=== PATIENT | female | born 1950 | race Caucasian/White ===

== ENCOUNTER → 2018-05-13 | Outpatient (CLI) | payer MEDICARE, OTHER | END | disposition home or self-care (01) | LOC: SPEC 12:56 | DX: L02.419 Cutaneous abscess of limb, unspecified (principal); I11.0 Hypertensive heart disease with heart failure; I50.9 Heart failure, unspecified; E78.5 Hyperlipidemia, unspecified; E03.9 Hypothyroidism, unspecified; Z87.891 Personal history of nicotine dependence; Z82.49 Family history of ischemic heart disease and other diseases of the circulatory system | CPT/HCPCS: 87071; 87075; 87186 ==

== ENCOUNTER 2019-04-22 01:39 | Inpatient (IN) | payer MEDICAID, MEDICARE ==
[2019-04-22] VITALS (13 sets, daily range): BP systolic 87–144; BP diastolic 42–66
[~2019-04-22] VITALS: Ht 185.4 cm; Wt 107.6 kg
[~2019-04-22 01:39] MED LIST: ALBU2.5V8 IH; AMLO10TA8 PO; AMLO5TAB10 PO; AMOX1TAB61 PO; BUDE10.2 IH; CITA40TA5 PO; DULO60CA6 PO; ERGO500027 PO; GABA300C18 PO; LEVO25TA4 PO; LEVO50TA5 PO; LISI-334 PO; PRAV40TA2 PO; VENTOLIN HFA18 GM INH
--- NOTE | 2019-04-22 05:31 | NUR ---
Patient transferred to unit via ambulance from [facility]. Report received from Deysi DIAMOND in the ED. Patient arrived to unit at 0330 and had a pain complaint of 8 out of 10. Patient belongings are left with patient. Did call security at patients request to help secure money and other valuables. Patient was admission was completed as well as assessment. Patient bed was placed in the lowest position, call light within reach and locked. Will continue to monitor the patient at this time.
[2019-04-22] MEDS ORDERED: HYDROcodone/APAP 5/325MG 1 TAB TABLET PO PRN (06:00)
[2019-04-22] MEDS ORDERED: ONDANSETRON PF 4 MG/2 ML VIAL. IV PRN ×2 (06:00→09:00)
[2019-04-22] MEDS ORDERED: AMLO10TA8 PO (06:20)
[2019-04-22] MEDS ORDERED: BREO ELLIPTA 11 EACH IH (06:20)
[2019-04-22] MEDS ORDERED: [UNRECOGNIZED DRUG - OTHER] IH (06:20)
[2019-04-22] MEDS ORDERED: ATOR40TA59 PO (06:20)
[2019-04-22] MEDS ORDERED: ACET325T9 PO (06:20)
[2019-04-22] MEDS ORDERED: ASPI-630 PO (06:20)
[2019-04-22] MEDS: IV NORMAL SALINE 1000ML BAG 1,000 ML IV SCH ×2 (06:30→15:20)
[2019-04-22] MEDS: MORPHINE SULFATE 2 MG/ML VIAL. IV PRN (06:31)
[2019-04-22] MEDS ORDERED: IV RINGERS,LACTATED 1000ML 1,000 ML IV SCH (08:58)
[2019-04-22] MEDS ORDERED: HYDROmorphone 2 MG/ML VIAL IV PRN (09:00)
[2019-04-22] MEDS ORDERED: LIDOCAINE 1% PF 2 ML VIAL. ID PRN (09:00)
[2019-04-22] MEDS ORDERED: NON FORMULARY ITEM (Fluticasone/Vilanterol (Breo Ellipta 100-25 Mcg Inh) 1 PUFF) IH SCH (09:00)
[2019-04-22] MEDS ORDERED: MORPHINE SULFATE 2 MG/ML VIAL. IV PRN (09:00)
[2019-04-22] MEDS ORDERED: PROCHLORPERAZINE 10 MG/2 ML VIAL. IV PRN (09:00)
[2019-04-22] MEDS ORDERED: fentaNYL PF VIAL 100 MCG/2 ML VIAL IV PRN ×2 (09:00)
[2019-04-22] MEDS: LISINOPRIL 20 MG TABLET PO SCH (09:00)
[2019-04-22] MEDS: amLODIPine BESYLATE 10 MG TABLET PO SCH (09:00)
[2019-04-22] MEDS ORDERED: [UNRECOGNIZED DRUG - REMARK] IH SCH (09:00)
[2019-04-22] MEDS ORDERED: ACETAMINOPHEN 325 MG TABLET. PO SCH (09:00)
[2019-04-22] MEDS: LEVOTHYROXINE 50 MCG TABLET PO SCH (09:14)
[2019-04-22] MEDS: GABAPENTIN 300 MG CAPSULE. PO SCH ×3 (09:14→21:10)
[2019-04-22] MEDS: DULoxetine HCL 30 MG CAPSULE.DR PO SCH (09:14)
[2019-04-22] MEDS ORDERED: ALBUTEROL SULFATE 2.5 MG/3 ML NEBU. NEB PRN (09:15)
[2019-04-22] MEDS ORDERED: ceFAZolin SODIUM 1 GM in IV DEXTROSE 5% 50 ML IV ONE (09:45)
[2019-04-22 09:55] LABS: BASO # 0.1 x10^3/uL (0.0-0.2); BASO % 0 % (0-3); EOS # 0.1 x10^3/uL (0.0-0.7); EOS % 1 % (0-3); HEMATOCRIT 37.9 % (36.0-47.0); HEMOGLOBIN 12.9 g/dL (12.0-15.5); LYMPH # 1.2 x10^3/uL (1.0-4.8); LYMPH % 9 % (24-48); MEAN CORPUSCULAR HEMOGLOBIN 31 pg (25-35); MEAN CORPUSCULAR HGB CONC 34 g/dL (31-37); MEAN CORPUSCULAR VOLUME 92 fL (79-100); MONO # 0.8 x10^3/uL (0.0-1.1); MONO % 6 % (0-9); NEUT # 11.5 x10^3uL (1.8-7.7); NEUT % 84 % (31-73); PLATELET COUNT 265 x10^3/uL (140-400); RED BLOOD COUNT 4.13 x10^6/uL (3.50-5.40); RED CELL DISTRIBUTION WIDTH 14.1 % (11.5-14.5); WHITE BLOOD COUNT 13.6 x10^3/uL (4.0-11.0)
[2019-04-22 10:07] LABS: PROTHROMBIN TIME PATIENT 12.9 SEC (11.7-14.0)
[2019-04-22 10:18] LABS: ALBUMIN 3.5 g/dL (3.4-5.0); ALBUMIN/GLOBULIN RATIO 0.9 (1.0-1.7); CALCIUM 9.1 mg/dL (8.5-10.1); CREATININE 0.7 mg/dL (0.6-1.0); GFR 83.5; POTASSIUM 3.9 mmol/L (3.5-5.1); TOTAL BILIRUBIN 0.5 mg/dL (0.2-1.0); TOTAL PROTEIN 7.5 g/dL (6.4-8.2)
--- NOTE | 2019-04-22 10:41 | PDOC2 ---
CONSULT Date of Consult Date of Consult DATE: 04/22/19 TIME: 10:37 Reason for Consult Reason for Consult: Right femoral neck fracture Referring Physician Referring Physician: Raymond Identification/Chief Complaint Chief Complaint Right hip pain Source Source: Patient History of Present Illness Reason for Visit: Patient is a very pleasant 68-year-old female with residual right-sided symptoms at her arm and leg after a CVA approximately 8 months ago which required prolonged rehabilitation. She had a ground-level fall yesterday on her steps and had an immediate pain and inability to bear weight and ambulate and was brought into the emergency department. She tells me that her right hip is painful with any movement, the pain does radiate down her thigh little ways. She does feel some numbness in her leg but this is not necessarily new. The pain is better at rest. At her baseline, she has been ambulating with a walker a lot lately but has been improving. She still feels like her right leg is weak in general. Past Medical History Cardiovascular: HTN, Hyperlipidemia, Valve insufficiency Pulmonary: Asthma, COPD GI: No pertinent hx Heme/Onc: No pertinent hx Hepatobiliary: No pertinent hx Psych: Anxiety, Depression, Panic Musculoskeletal: Osteoarthritis, Other Rheumatologic: No pertinent hx Infectious disease: No pertinent hx Renal/: No pertinent hx Endocrine: Hypothyroidism Past Surgical History Past Surgical History: Other (thyroid surgery), No pertinent history Family History Family History: Other Social History ALCOHOL: none Drugs: None Lives: Alone Current Medications Current Medications Current Medications Ondansetron HCl (Zofran) 4 mg PRN Q6HRS PRN IV NAUSEA/VOMITING 1ST CHOICE; Start 04/22/19 at 06:00 Acetaminophen (Tylenol) 650 mg PRN Q6HRS PRN PO MILD PAIN 1-3; Start 04/22/19 at 06:00 Acetaminophen/ Hydrocodone Bitart (Lortab 5/325) 1 tab PRN Q6HRS PRN PO MODERA TE PAIN 4-6; Start 04/22/19 at 06:00 Morphine Sulfate (Morphine Sulfate) 2 mg PRN Q2HR PRN IV SEVERE PAIN 7-10 Last administered on 04/22/19at 06:31; Start 04/22/19 at 06:00 Sodium Chloride 1,000 ml @ 100 mls/hr Q10H IV Last administered on 04/22/19at 06:30; Start 04/22/19 at 06:00 Acetaminophen (Tylenol) 650 mg PRN Q6HRS PO ; Start 04/22/19 at 09:00; Status UNV Amlodipine Besylate (Norvasc) 10 mg DAILY PO ; Start 04/22/19 at 09:00 Atorvastatin Calcium (Lipitor) 40 mg QHS PO ; Start 04/22/19 at 21:00 Ergocalciferol (Vitamin D2) 50,000 unit WEEKLY PO ; Start 04/29/19 at 09:00 Gabapentin (Neurontin) 300 mg [id number] PO ; Start 04/22/19 at 09:30 Lisinopril (Prinivil) 20 mg DAILY PO ; Start 04/22/19 at 09:00 Duloxetine HCl (Cymbalta) 60 mg DAILY PO ; Start 04/22/19 at 10:00 Non-Formulary Medication (Fluticasone/ Vilanterol (Breo Ellipta 100-25 Mcg Inh)) 1 puff DAILY IH ; Start 04/22/19 at 09:00; Status UNV Levothyroxine Sodium (Synthroid) 50 mcg DAILY06 PO ; Start 04/22/19 at 10:00 Non-Formulary Medication ([albuterol CFC free ] ) 90 mcg PRN Q4HRS IH ; Start 04/22/19 at 09:00; Status UNV Ondansetron HCl (Zofran) 4 mg PRN Q6HRS PRN IV NAUSEA/VOMITING; Start 04/22/19 at 09:00; Stop 04/23/19 at 08:59 Fentanyl Citrate (Fentanyl 2ml Vial) 25 mcg PRN Q5MIN PRN IV MILD PAIN 1-3; Start 04/22/19 at 09:00; Stop 04/23/19 at 08:59 Fentanyl Citrate (Fentanyl 2ml Vial) 50 mcg PRN Q5MIN PRN IV MODERATE TO SEVERE PAIN; Start 04/22/19 at 09:00; Stop 04/23/19 at 08:59 Morphine Sulfate (Morphine Sulfate) 1 mg PRN Q10MIN PRN IV SEVERE PAIN 7-10; Start 04/22/19 at 09:00; Stop 04/23/19 at 08:59 Ringer's Solution 1,000 ml @ 30 mls/hr Q24H IV ; Start 04/22/19 at 08:58; Stop 04/22/19 at 20:57 Lidocaine HCl (Xylocaine-Mpf 1% 2ml Vial) 2 ml PRN 1X PRN ID PRIOR TO IV START; Start 04/22/19 at 09:00; Stop 04/23/19 at 08:59 Hydromorphone HCl (Dilaudid) 0.5 mg PRN Q10MIN PRN IV SEV PAIN, Second choice; Start 04/22/19 at 09:00; Stop 04/23/19 at 08:59 Prochlorperazine Edisylate (Compazine) 5 mg PACU PRN PRN IV NAUSEA, MRX1; Start 04/22/19 at 09:00; Stop 04/23/19 at 08:59 Budesonide (Pulmicort) 0.5 mg RTBID NEB ; Start 04/22/19 at 20:00 Albuterol Sulfate (Ventolin Neb Soln) 2.5 mg RTQID NEB ; Start 04/22/19 at 12:00 Albuterol Sulfate (Ventolin Neb Soln) 2.5 mg PRN Q6HRS PRN NEB SHORTNESS OF BREATH; Start 04/22/19 at 09:15 Cefazolin Sodium 1 gm/Dextrose 50 ml @ 100 mls/hr 1X ONCE IV ; Start 04/22/19 at 09:45; Stop 04/22/19 at 10:14; Status UNV Cefazolin Sodium 50 ml @ 100 mls/hr 1X PREOP PRN IV PRIOR TO PROCEDURE; Start 04/22/19 at 06:00; Stop 04/23/19 at 05:59 Morphine Sulfate 5 mg/Ketorolac Tromethamine 30 mg/Ropivacaine 60 ml/Epinephrine HCl 0.5 mg/Sodium Chloride 100 ml @ 100 mls/hr 1X PERIOP ONCE INT ART ; Start 04/22/19 at 11:00; Stop 04/22/19 at 11:59 Active Scripts Active Reported Aspirin 81 Mg Tab.chew 1 Tab PO DAILY Atorvastatin Calcium 40 Mg Tablet 1 Tab PO QHS Amlodipine Besylate 10 Mg Tablet 10 Mg PO DAILY [albuterol CFC free ] 90 Mcg IH PRN Q4HRS Tylenol (Acetaminophen) 325 Mg Tablet 2 Tab PO PRN Q6HRS Breo Ellipta 100-25 Mcg Inh (Fluticasone/Vilanterol) 1 Each Aer.pow.ba 1 Puff IH DAILY Cymbalta (Duloxetine Hcl) 60 Mg Capsule.dr 60 Mg PO DAILY Levothyroxine Sodium 50 Mcg Tablet 50 Mcg PO DAILYAC Vitamin D2 (Ergocalciferol (Vitamin D2)) 50,000 Unit Capsule 1 Cap PO WEEKLY Gabapentin (Gabapentin) 300 Mg Capsule 300 Mg PO [id number] Lisinopril 20 Mg Tablet 1 Tab PO DAILY Allergies Allergies: Coded Allergies: No Known Drug Allergies (Unverified , 05/15/17) ROS General: No: Chills, Night Sweats, Fatigue, Malaise, Appetite, Other PSYCHOLOGICAL ROS: YES: Anxiety Eyes: No Blurry vision, No Decreased vision, No Double vision, No Dry eyes, No Excessive tearing, No Eye Pain, No Itchy Eyes, No Loss of vision, No Photophobia, No Scotomata, No Uses contacts, No Uses glasses, No Other HEENT: No: Heacaches, Visual Changes, Hearing change, Nasal congestion, Nasal discharge, Oral lesions, Sinus pain, Sore Throat, Epistaxis, Sneezing, Snoring, Tinnitus, Vertigo, Vocal changes, Other ALLERGY AND IMMUNOLOGY: No: Hives, Insect Bite Sensitivity, Itchy/Watery Eyes, Nasal Congestion, Post Nasal Drip, Seasonal Allergies, Other Hematological and Lymphatic: YES: Blood Clots (she has a subclavian thrombosis); No: Bleeding Problems, Blood Transfusions, Brusing, Night Sweats, Pallor, Swollen Lymph Nodes, Other ENDOCRINE: No: Breast Changes, Galactorrhea, Hair Pattern Changes, Hot Flashes, Malaise/lethargy, Mood Swings, Palpitations, Polydipsia/polyuria, Skin Changes, Temperature Intolerance, Unexpected Weight Changes, Other Respiratory: No: Cough, Hemoptysis, Orthopnea, Pleuritic Pain, Shortness of breath, SOB with excertion, Sputum Changes, Stridor, Tachypnea, Wheezing, Other Cardiovascular: No Chest Pain, No Palpitations, No Orthopnea, No Paroxysmal Noc. Dyspnea, No Edema, No Lt Headedness, No Other Gastrointestinal: No Nausea, No Vomiting, No Abdominal Pain, No Diarrhea, No Constipation, No Melena, No Hematochezia, No Other Musculoskeletal: Yes Gait Disturbance, Yes Joint Pain Neurological: Yes Dizziness Skin: No Dry Skin, No Eczema, No Hair Changes, No Lumps, No Mole Changes, No Mottling, No Nail Changes, No Pruritus, No Rash, No Skin Lesion Changes, No Other, No Acne Physical Exam General: Alert, Oriented X3 HEENT: Atraumatic, EOMI Lungs: Other (respirations are unlabored with symmetric chest rise) Heart: Regular rate Abdomen: Soft, No tenderness Extremities: No edema, Normal pulses Neuro: Normal speech, Strength at 5/5 X4 ext, Sensation intact Psych/Mental Status: Mental status NL, Mood NL MUSCULOSKELETAL: Other (right lower extremity is shortened and slightly externally rotated. It is held flexed at the hip. She can wiggle her toes distally. She has good strength at EHL and FHL.) Vitals VITALS Vital Signs Date Time Temp Pulse Resp B/P (MAP) Pulse Ox O2 Delivery O2 Flow Rate FiO2 04/22/19 08:39 97.9 92 20 126/56 (79) 97 Room Air 97.9 04/22/19 06:31 2.0 Labs Labs Laboratory Tests Test 04/22/19 09:15 White Blood Count 13.6 x10^3/uL (4.0-11.0) Red Blood Count 4.13 x10^6/uL (3.50-5.40) Hemoglobin 12.9 g/dL (12.0-15.5) Hematocrit 37.9 % (36.0-47.0) Mean Corpuscular Volume 92 fL (79-100) Mean Corpuscular Hemoglobin 31 pg (25-35) Mean Corpuscular Hemoglobin Concent 34 g/dL (31-37) Red Cell Distribution Width 14.1 % (11.5-14.5) Platelet Count 265 x10^3/uL (140-400) Neutrophils (%) (Auto) 84 % (31-73) Lymphocytes (%) (Auto) 9 % (24-48) Monocytes (%) (Auto) 6 % (0-9) Eosinophils (%) (Auto) 1 % (0-3) Basophils (%) (Auto) 0 % (0-3) Neutrophils # (Auto) 11.5 x10^3uL (1.8-7.7) Lymphocytes # (Auto) 1.2 x10^3/uL (1.0-4.8) Monocytes # (Auto) 0.8 x10^3/uL (0.0-1.1) Eosinophils # (Auto) 0.1 x10^3/uL (0.0-0.7) Basophils # (Auto) 0.1 x10^3/uL (0.0-0.2) Prothrombin Time 12.9 SEC (11.7-14.0) Prothromb Time International Ratio 1.0 (0.8-1.1) Sodium Level 135 mmol/L (136-145) Potassium Level 3.9 mmol/L (3.5-5.1) Chloride Level 99 mmol/L (98-107) Carbon Dioxide Level 25 mmol/L (21-32) Anion Gap 11 (6-14) Blood Urea Nitrogen 13 mg/dL (7-20) Creatinine 0.7 mg/dL (0.6-1.0) Estimated GFR (Cockcroft-Gault) 83.5 BUN/Creatinine Ratio 19 (6-20) Glucose Level 99 mg/dL (70-99) Calcium Level 9.1 mg/dL (8.5-10.1) Total Bilirubin 0.5 mg/dL (0.2-1.0) Aspartate Amino Transf (AST/SGOT) 21 U/L (15-37) Alanine Aminotransferase (ALT/SGPT) 26 U/L (14-59) Alkaline Phosphatase 113 U/L (46-116) Total Protein 7.5 g/dL (6.4-8.2) Albumin 3.5 g/dL (3.4-5.0) Albumin/Globulin Ratio 0.9 (1.0-1.7) Laboratory Tests Test 04/22/19 09:15 White Blood Count 13.6 x10^3/uL (4.0-11.0) Red Blood Count 4.13 x10^6/uL (3.50-5.40) Hemoglobin 12.9 g/dL (12.0-15.5) Hematocrit 37.9 % (36.0-47.0) Mean Corpuscular Volume 92 fL (79-100) Mean Corpuscular Hemoglobin 31 pg (25-35) Mean Corpuscular Hemoglobin Concent 34 g/dL (31-37) Red Cell Distribution Width 14.1 % (11.5-14.5) Platelet Count 265 x10^3/uL (140-400) Neutrophils (%) (Auto) 84 % (31-73) Lymphocytes (%) (Auto) 9 % (24-48) Monocytes (%) (Auto) 6 % (0-9) Eosinophils (%) (Auto) 1 % (0-3) Basophils (%) (Auto) 0 % (0-3) Neutrophils # (Auto) 11.5 x10^3uL (1.8-7.7) Lymphocytes # (Auto) 1.2 x10^3/uL (1.0-4.8) Monocytes # (Auto) 0.8 x10^3/uL (0.0-1.1) Eosinophils # (Auto) 0.1 x10^3/uL (0.0-0.7) Basophils # (Auto) 0.1 x10^3/uL (0.0-0.2) Prothrombin Time 12.9 SEC (11.7-14.0) Prothromb Time International Ratio 1.0 (0.8-1.1) Sodium Level 135 mmol/L (136-145) Potassium Level 3.9 mmol/L (3.5-5.1) Chloride Level 99 mmol/L (98-107) Carbon Dioxide Level 25 mmol/L (21-32) Anion Gap 11 (6-14) Blood Urea Nitrogen 13 mg/dL (7-20) Creatinine 0.7 mg/dL (0.6-1.0) Estimated GFR (Cockcroft-Gault) 83.5 BUN/Creatinine Ratio 19 (6-20) Glucose Level 99 mg/dL (70-99) Calcium Level 9.1 mg/dL (8.5-10.1) Total Bilirubin 0.5 mg/dL (0.2-1.0) Aspartate Amino Transf (AST/SGOT) 21 U/L (15-37) Alanine Aminotransferase (ALT/SGPT) 26 U/L (14-59) Alkaline Phosphatase 113 U/L (46-116) Total Protein 7.5 g/dL (6.4-8.2) Albumin 3.5 g/dL (3.4-5.0) Albumin/Globulin Ratio 0.9 (1.0-1.7) Images Images X-rays are interpreted by myself. She has a displaced right femoral neck fracture Assessment/Plan Assessment/Plan Given her younger age, I did discuss heavy versus total hip arthroplasty with her. She has not had any hip pain in the past. She is concerned about frequent falls and weakness in her leg and therefore we both agreed that protecting her against dislocation is probably the better thing to do at this point and therefore we'll proceed with a right hip hemiarthroplasty. IAN PACHECO II, MD Apr 22, 2019 10:41
--- NOTE | 2019-04-22 10:42 | PDOC1 ---
History and Physical Date of Admission Date of Admission DATE: 04/22/19 TIME: 10:38 Identification/Chief Complaint Chief Complaint Fall at home, hurt right hip Source Source: Caregiver, Chart review, Patient History of Present Illness History of Present Illness 68-year-old white female who lives at home, had a stroke August or July 2018 and has some residual balance issues sicne then, was at home, mechanical fall, hurt her right knee and has a right hip fracture. NO LOC or head trauma Takes aspirin 81 for stroke and also some history of left subclavian 100% stenosis?, follows with Dr. Monterroso, advised aspirin only and no surgical intervention for now unless develops sxs Seen by Ortho and is planned for surgery later today Past medical: hypertension on amlodipine and another BP med. Right hip is okay as long she doesn't move, agreeable to surgery. Nondiabetic, no known coronary artery disease she is a transfer from [facility] Past Medical History Cardiovascular: HTN, Hyperlipidemia, Valve insufficiency Pulmonary: Asthma, COPD GI: No pertinent hx Heme/Onc: No pertinent hx Hepatobiliary: No pertinent hx Psych: Anxiety, Depression, Panic Musculoskeletal: Osteoarthritis, Other Rheumatologic: No pertinent hx Infectious disease: No pertinent hx Renal/: No pertinent hx Endocrine: Hypothyroidism Past Surgical History Past Surgical History: No pertinent history Family History Family History: Hypertension, Other Social History Smoke: <1 pack per day ALCOHOL: none Drugs: None Current Medications Current Medications Current Medications Ondansetron HCl (Zofran) 4 mg PRN Q6HRS PRN IV NAUSEA/VOMITING 1ST CHOICE; Start 04/22/19 at 06:00 Acetaminophen (Tylenol) 650 mg PRN Q6HRS PRN PO MILD PAIN 1-3; Start 04/22/19 at 06:00 Acetaminophen/ Hydrocodone Bitart (Lortab 5/325) 1 tab PRN Q6HRS PRN PO MODERATE PAIN 4-6; Start 04/22/19 at 06:00 Morphine Sulfate (Morphine Sulfate) 2 mg PRN Q2HR PRN IV SEVERE PAIN 7-10 Last administered on 04/22/19at 06:31; Start 04/22/19 at 06:00 Sodium Chloride 1,000 ml @ 100 mls/hr Q10H IV Last administered on 04/22/19at 06:30; Start 04/22/19 at 06:00 Acetaminophen (Tylenol) 650 mg PRN Q6HRS PO ; Start 04/22/19 at 09:00; Status UNV Amlodipine Besylate (Norvasc) 10 mg DAILY PO ; Start 04/22/19 at 09:00 Atorvastatin Calcium (Lipitor) 40 mg QHS PO ; Start 04/22/19 at 21:00 Ergocalciferol (Vitamin D2) 50,000 unit WEEKLY PO ; Start 04/29/19 at 09:00 Gabapentin (Neurontin) 300 mg [id number] PO ; Start 04/22/19 at 09:30 Lisinopril (Prinivil) 20 mg DAILY PO ; Start 04/22/19 at 09:00 Duloxetine HCl (Cymbalta) 60 mg DAILY PO ; Start 04/22/19 at 10:00 Non-Formulary Medication (Fluticasone/ Vilanterol (Breo Ellipta 100-25 Mcg Inh)) 1 puff DAILY IH ; Start 04/22/19 at 09:00; Status UNV Levothyroxine Sodium (Synthroid) 50 mcg DAILY06 PO ; Start 04/22/19 at 10:00 Non-Formulary Medication ([albuterol CFC free ] ) 90 mcg PRN Q4HRS IH ; Start 04/22/19 at 09:00; Status UNV Ondansetron HCl (Zofran) 4 mg PRN Q6HRS PRN IV NAUSEA/VOMITING; Start 04/22/19 a t 09:00; Stop 04/23/19 at 08:59 Fentanyl Citrate (Fentanyl 2ml Vial) 25 mcg PRN Q5MIN PRN IV MILD PAIN 1-3; Start 04/22/19 at 09:00; Stop 04/23/19 at 08:59 Fentanyl Citrate (Fentanyl 2ml Vial) 50 mcg PRN Q5MIN PRN IV MODERATE TO SEVERE PAIN; Start 04/22/19 at 09:00; Stop 04/23/19 at 08:59 Morphine Sulfate (Morphine Sulfate) 1 mg PRN Q10MIN PRN IV SEVERE PAIN 7-10; Start 04/22/19 at 09:00; Stop 04/23/19 at 08:59 Ringer's Solution 1,000 ml @ 30 mls/hr Q24H IV ; Start 04/22/19 at 08:58; Stop 04/22/19 at 20:57 Lidocaine HCl (Xylocaine-Mpf 1% 2ml Vial) 2 ml PRN 1X PRN ID PRIOR TO IV START; Start 04/22/19 at 09:00; Stop 04/23/19 at 08:59 Hydromorphone HCl (Dilaudid) 0.5 mg PRN Q10MIN PRN IV SEV PAIN, Second choice; Start 04/22/19 at 09:00; Stop 04/23/19 at 08:59 Prochlorperazine Edisylate (Compazine) 5 mg PACU PRN PRN IV NAUSEA, MRX1; Start 04/22/19 at 09:00; Stop 04/23/19 at 08:59 Budesonide (Pulmicort) 0.5 mg RTBID NEB ; Start 04/22/19 at 20:00 Albuterol Sulfate (Ventolin Neb Soln) 2.5 mg RTQID NEB ; Start 04/22/19 at 12:00 Albuterol Sulfate (Ventolin Neb Soln) 2.5 mg PRN Q6HRS PRN NEB SHORTNESS OF BREATH; Start 04/22/19 at 09:15 Cefazolin Sodium 1 gm/Dextrose 50 ml @ 100 mls/hr 1X ONCE IV ; Start 04/22/19 at 09:45; Stop 04/22/19 at 10:14; Status UNV Cefazolin Sodium 50 ml @ 100 mls/hr 1X PREOP PRN IV PRIOR TO PROCEDURE; Start 04/22/19 at 06:00; Stop 04/23/19 at 05:59 Morphine Sulfate 5 mg/Ketorolac Tromethamine 30 mg/Ropivacaine 60 ml/Epinephrine HCl 0.5 mg/Sodium Chloride 100 ml @ 100 mls/hr 1X PERIOP ONCE INT ART ; Start 04/22/19 at 11:00; Stop 04/22/19 at 11:59 Active Scripts Active Reported Aspirin 81 Mg Tab.chew 1 Tab PO DAILY Atorvastatin Calcium 40 Mg Tablet 1 Tab PO QHS Amlodipine Besylate 10 Mg Tablet 10 Mg PO DAILY [albuterol CFC free ] 90 Mcg IH PRN Q4HRS Tylenol (Acetaminophen) 325 Mg Tablet 2 Tab PO PRN Q6HRS Breo Ellipta 100-25 Mcg Inh (Fluticasone/Vilanterol) 1 Each Aer.pow.ba 1 Puff IH DAILY Cymbalta (Duloxetine Hcl) 60 Mg Capsule. 60 Mg PO DAILY Levothyroxine Sodium 50 Mcg Tablet 50 Mcg PO DAILYAC Vitamin D2 (Ergocalciferol (Vitamin D2)) 50,000 Unit Capsule 1 Cap PO WEEKLY Gabapentin (Gabapentin) 300 Mg Capsule 300 Mg PO [id number] Lisinopril 20 Mg Tablet 1 Tab PO DAILY Allergies Allergies: Coded Allergies: No Known Drug Allergies (Unverified , 05/15/17) ROS Review of System Right hip hurts, otherwise rest of ROS 14 point negative Physical Exam General: Alert, Oriented X3, Cooperative, No acute distress HEENT: Atraumatic, PERRLA, EOMI Lungs: Clear to auscultation, Normal air movement Heart: S1S2, RRR, no thrills, no rubs, no gallops, no murmurs Cardiovascular: S1 Breasts: Normal, Rt breast nml w/o mass, Lt breast nml w/o mass, Nipples normal Abdomen: Normal bowel sounds, Soft, No tenderness, No hepatosplenomegaly, No masses Rectal Exam: not examined Extremities: Other (right hip externally rotated) Skin: No rashes, No breakdown, No significant lesion Neuro: Normal gait, Normal speech, Strength at 5/5 X4 ext, Normal tone, Sensation intact, Cranial nerves 3-12 NL, Reflexes 2+ Psych/Mental Status: Mental status NL, Mood NL Vitals Vitals Vital Signs Date Time Temp Pulse Resp B/P (MAP) Pulse Ox O2 Delivery O2 Flow Rate FiO2 04/22/19 08:39 97.9 92 20 126/56 (79) 97 Room Air 97.9 04/22/19 06:31 2.0 Labs Labs Laboratory Tests Test 04/22/19 09:15 White Blood Count 13.6 x10^3/uL (4.0-11.0) Red Blood Count 4.13 x10^6/uL (3.50-5.40) Hemoglobin 12.9 g/dL (12.0-15.5) Hematocrit 37.9 % (36.0-47.0) Mean Corpuscular Volume 92 fL (79-100) Mean Corpuscular Hemoglobin 31 pg (25-35) Mean Corpuscular Hemoglobin Concent 34 g/dL (31-37) Red Cell Distribution Width 14.1 % (11.5-14.5) Platelet Count 265 x10^3/uL (140-400) Neutrophils (%) (Auto) 84 % (31-73) Lymphocytes (%) (Auto) 9 % (24-48) Monocytes (%) (Auto) 6 % (0-9) Eosinophils (%) (Auto) 1 % (0-3) Basophils (%) (Auto) 0 % (0-3) Neutrophils # (Auto) 11.5 x10^3uL (1.8-7.7) Lymphocytes # (Auto) 1.2 x10^3/uL (1.0-4.8) Monocytes # (Auto) 0.8 x10^3/uL (0.0-1.1) Eosinophils # (Auto) 0.1 x10^3/uL (0.0-0.7) Basophils # (Auto) 0.1 x10^3/uL (0.0-0.2) Prothrombin Time 12.9 SEC (11.7-14.0) Prothromb Time International Ratio 1.0 (0.8-1.1) Sodium Level 135 mmol/L (136-145) Potassium Level 3.9 mmol/L (3.5-5.1) Chloride Level 99 mmol/L (98-107) Carbon Dioxide Level 25 mmol/L (21-32) Anion Gap 11 (6-14) Blood Urea Nitrogen 13 mg/dL (7-20) Creatinine 0.7 mg/dL (0.6-1.0) Estimated GFR (Cockcroft-Gault) 83.5 BUN/Creatinine Ratio 19 (6-20) Glucose Level 99 mg/dL (70-99) Calcium Level 9.1 mg/dL (8.5-10.1) Total Bilirubin 0.5 mg/dL (0.2-1.0) Aspartate Amino Transf (AST/SGOT) 21 U/L (15-37) Alanine Aminotransferase (ALT/SGPT) 26 U/L (14-59) Alkaline Phosphatase 113 U/L (46-116) Total Protein 7.5 g/dL (6.4-8.2) Albumin 3.5 g/dL (3.4-5.0) Albumin/Globulin Ratio 0.9 (1.0-1.7) Laboratory Tests Test 04/22/19 09:15 White Blood Count 13.6 x10^3/uL (4.0-11.0) Red Blood Count 4.13 x10^6/uL (3.50-5.40) Hemoglobin 12.9 g/dL (12.0-15.5) Hematocrit 37.9 % (36.0-47.0) Mean Corpuscular Volume 92 fL (79-100) Mean Corpuscular Hemoglobin 31 pg (25-35) Mean Corpuscular Hemoglobin Concent 34 g/dL (31-37) Red Cell Distribution Width 14.1 % (11.5-14.5) Platelet Count 265 x10^3/uL (140-400) Neutrophils (%) (Auto) 84 % (31-73) Lymphocytes (%) (Auto) 9 % (24-48) Monocytes (%) (Auto) 6 % (0-9) Eosinophils (%) (Auto) 1 % (0-3) Basophils (%) (Auto) 0 % (0-3) Neutrophils # (Auto) 11.5 x10^3uL (1.8-7.7) Lymphocytes # (Auto) 1.2 x10^3/uL (1.0-4.8) Monocytes # (Auto) 0.8 x10^3/uL (0.0-1.1) Eosinophils # (Auto) 0.1 x10^3/uL (0.0-0.7) Basophils # (Auto) 0.1 x10^3/uL (0.0-0.2) Prothrombin Time 12.9 SEC (11.7-14.0) Prothromb Time International Ratio 1.0 (0.8-1.1) Sodium Level 135 mmol/L (136-145) Potassium Level 3.9 mmol/L (3.5-5.1) Chloride Level 99 mmol/L (98-107) Carbon Dioxide Level 25 mmol/L (21-32) Anion Gap 11 (6-14) Blood Urea Nitrogen 13 mg/dL (7-20) Creatinine 0.7 mg/dL (0.6-1.0) Estimated GFR (Cockcroft-Gault) 83.5 BUN/Creatinine Ratio 19 (6-20) Glucose Level 99 mg/dL (70-99) Calcium Level 9.1 mg/dL (8.5-10.1) Total Bilirubin 0.5 mg/dL (0.2-1.0) Aspartate Amino Transf (AST/SGOT) 21 U/L (15-37) Alanine Aminotransferase (ALT/SGPT) 26 U/L (14-59) Alkaline Phosphatase 113 U/L (46-116) Total Protein 7.5 g/dL (6.4-8.2) Albumin 3.5 g/dL (3.4-5.0) Albumin/Globulin Ratio 0.9 (1.0-1.7) VTE Prophylaxis Ordered VTE Prophylaxis Devices: Yes VTE Pharmacological Prophylaxi: Yes Assessment/Plan Assessment/Plan Right hip fracture Mechanical fall traumatic, closed Hypertension, controlled History of left subclavian stenosis-on aspirin 81 History of CVA, ischemic AugustJuly 2018-status post 3 weeks in [facility] rehabilitation-she is interested in [facility] rehabilitation, closer to home when she discharges PLAN: NPO, OR later, check vitamin D levels and postop labs tmr PT OT Social work consult-interested in [place] [facility] [place] [place] [address] DESTINEE DOWNEY MD Apr 22, 2019 10:41
[2019-04-22] MEDS ORDERED: LIDOCAINE 2% PF 5 ML VIAL. ONE (10:59)
[2019-04-22] MEDS ORDERED: ROCURONIUM 50 MG/5 ML VIAL. ONE (10:59)
[2019-04-22] MEDS ORDERED: fentaNYL PF VIAL 100 MCG/2 ML VIAL ONE ×2 (10:59→12:35)
[2019-04-22] MEDS ORDERED: PROPOFOL 20 ML IV ONE (10:59)
[2019-04-22] MEDS ORDERED: ONDANSETRON PF 4 MG/2 ML VIAL. ONE (10:59)
[2019-04-22] MEDS ORDERED: DEXAMETHASONE SOD PHOS 4 MG/ML VIAL ONE ×2 (10:59)
[2019-04-22] MEDS ORDERED: TV=100ml MORPHINE 5 MG, KETOROLAC 30 MG, ROPIVacaine 0.5% PF 60 ML, EPINEPH... INT ART ONE ×5 (11:00)
[2019-04-22] MEDS: ALBUTEROL SULFATE 2.5 MG/3 ML NEBU. NEB SCH ×4 (11:02→20:11)
[2019-04-22] MEDS ORDERED: IPRATRPIUM/ALBUTEROL 0.5/2.5MG 3 ML NEBU. NEB STA (11:30)
[2019-04-22] MEDS ORDERED: IPRATRPIUM/ALBUTEROL 0.5/2.5MG 3 ML NEBU. ONE (11:33)
--- NOTE | 2019-04-22 11:43 | PDOC4 ---
Operative Note Operative Note Date of procedure: 04/22/2019 Surgeon: Elieser Oconnell.: Preoperative diagnosis: Displaced closed right femoral neck fracture Postoperative diagnosis: Same Procedure performed: Right hip hemiarthroplasty Anesthesia: Gen. Complications: none Blood loss: 150mL Findings: Acute femoral neck fracture Components inserted: Tai and nephew cemented Synergy size 11 stem, 44mm Garland chrome head, +0 taper sleeve Reason for procedure: Patient is a 68 year old female with a history of a ground-level fall. Please see my consult note for further details. I discussion of the risks, benefits, and alternatives after I evaluated the patient and reviewed the imaging with her and she wished to proceed with surgery. Description of procedure: Patient was greeted in the preoperative area by myself for the correct extremity was verified and marked. She was taken back to the operative suite and antibiotics were started as she was brought back. Once in the operating room, she had successful induction of a general anesthetic and was then transferred supine to the operating room table where she was placed in the lateral decubitus position with the right side up. All down pressure points were padded, axillary roll was used, and she was secured to the bed with our hip positioning device. Right lower extremity and hip were prepped and draped in our usual sterile fashion including an [place] Sp[place]. Preoperative timeout was conducted. Surface anatomy was then palpated and marked. I lauren a line from my standard posterolateral skin incision. Skin was incised with a scalpel and dissected subcutaneous tissue and cauterized bleeders with electrocautery until identified the fascia. Adherent subcutaneous tissues tissue and swept aside with a Chinchilla elevator for better identification of the fascia for later repair. Fascia was incised in line with the skin incision. Hemorrhagic bursal tissue was excised carefully. Identified the quadratus and piriformis. I took these down with electrocautery. I incised capsule in a T- type incision and tag ends of this for later repair. I Identified the fracture site. I palpated and marked on her femoral neck about 1 cm proximal to the lesser trochanter and then made my neck cut here. The bony pieces were delivered from the operative field. The femoral head was delivered from the acetabulum with the assistance of a shoehorn device and a corkscrew. I inspected the acetabulum, she had some wear. He was thoroughly irrigated out, no loose debris was present. After this, repositioned the leg and introduce my proximal femoral elevator. I began broaching and broached to the above size. I then trialed head and neck combinations. After this, all trial components were removed and the operative field including the femoral canal and acetabulum were thoroughly irrigated. I then cemented in place my stem and held it in position until the cement polymerized. I then re-trialed and selected the above size. I then removed the trial components after dislocating the hip. The acetabulum was again inspected make sure there was no loose debris. The operative field was again irrigated out. I then washed and dried the Hebert taper region and gently impacted my cobalt chrome ball into position. I tested range of motion, stability, and leg lengths and was satisfied. After her this, I closed capsule with simple interrupted #2 Ethibond. The piriformis was reapproximated through drill tunnels. The operative field was then thoroughly irrigated out again. I then closed fascia with running #2 Quill suture. Inverted interrupted 2-0 Vicryl was used for subcutaneous tissue. Boykins were used for skin. The wound was then cleansed and dried and our incisional wound VAC was applied.Prior to my closure, all counts were correct 2 and I had injected my periarticular mixture into the concepcion-incisional soft tissues. No complications. Surgery was well tolerated by the patient. At the conclusion, she was laid supine and transferred gently supine to the hospital bed and taken to the PACU in stable and extubated condition. Postoperative plan will be to maintain her on routine DVT and antibiotic prophylaxis postoperatively. PT and OT will work with her as well, she can weight-bear as tolerated. Ill follow along with her postoperative course. ELIESER PACHECO II, MD Apr 22, 2019 11:43
[2019-04-22] MEDS ORDERED: ceFAZolin SODIUM 1 GM in IV DEXTROSE 5% 50 ML IV SCH (12:00)
--- NOTE | 2019-04-22 12:00 | NUR ---
SS following for discharge planning. SS reviewed pt chart. Pt is from home and is currently on room air. PT/OT pending. No discharge needs noted at this time. SS will continue to follow for discharge planning.
[2019-04-22] MEDS ORDERED: PHENYLEPHRINE in 0.9% NACL PF 1 MG/10 ML SYRINGE. IV ONE (12:10)
[2019-04-22] MEDS ORDERED: 0.9 % SODIUM CHLORIDE 20 ML VIAL. IJ ONE (12:20)
[2019-04-22] MEDS ORDERED: GLYCOPYRROLATE 1 MG/5 ML VIAL. ONE (13:04)
[2019-04-22] MEDS ORDERED: NEOSTIGMINE METHYLSULFATE 5 MG/5 ML SYRINGE. ONE (13:04)
[2019-04-22] MEDS ORDERED: ePHEDrine PF IN SALINE 50 MG/10 ML SYRINGE. IV ONE (13:12)
[2019-04-22] MEDS ORDERED: SEVOFLURANE 61 TO 120 MINUTES. IH ONE (13:15)
--- NOTE | 2019-04-22 15:01 | NUR ---
Pharmacy Warfarin Dosing Note S:Pharmacy consulted to assist with anticoagulation therapy started 04/22/19 with target INR: 2 -3 O:MARYELLEN BLANCHARD is a 68 year old F with Hip Fracture LABS: Last INR: 1.0 Last HGB: 12.9 Last HCT: 37.9 Last PLT: 265 Last dose of given on at Previous Regimen: Vitamin K given: Drug Interaction Changes: Ongoing Drug Interactions: A:INR of 1.0 is below desired range. Target range for this patient is: 2 -3 P: Warfarin dose: 7.5 mg Today at 1600 Bridge Therapy: None Next INR due TOMORROW. Pharmacy anticoagulation service will continue to follow. NICKOLAS BL[facility]ENSHIP [facility], 04/22/19 [id number]
[2019-04-22] MEDS: HYDROcodone/APAP 5/325MG 1 TAB TABLET PO PRN (15:50)
[2019-04-22] MEDS ORDERED: WARFARIN 7.5 MG TABLET. PO ONE (16:00)
[2019-04-22] MEDS: ceFAZolin SODIUM IV Push 1 GM VIAL. IVP SCH (17:51)
[2019-04-22] MEDS: BUDESONIDE 0.5 MG/2 ML NEBU. NEB SCH (20:11)
[2019-04-22] MEDS: ATORVASTATIN CALCIUM 40 MG TABLET. PO SCH (21:09)
[2019-04-23] MEDS: ceFAZolin SODIUM IV Push 1 GM VIAL. IVP SCH ×2 (00:06→06:32)
[2019-04-23] MEDS: IV NORMAL SALINE 1000ML BAG 1,000 ML IV SCH ×3 (02:00→21:06)
[2019-04-23 03:00] VITALS: BP 91/41
[2019-04-23 04:57] LABS: PROTHROMBIN TIME PATIENT 13.5 SEC (11.7-14.0)
[2019-04-23] MEDS: LEVOTHYROXINE 50 MCG TABLET PO SCH (06:31)
[2019-04-23] MEDS: GABAPENTIN 300 MG CAPSULE. PO SCH ×3 (06:31→21:05)
[2019-04-23 07:00] VITALS: BP 106/54
[2019-04-23] MEDS: DULoxetine HCL 30 MG CAPSULE.DR PO SCH (07:40)
[2019-04-23] MEDS: LISINOPRIL 20 MG TABLET PO SCH (07:40)
[2019-04-23] MEDS: amLODIPine BESYLATE 10 MG TABLET PO SCH (07:40)
[2019-04-23] MEDS: NICOTINE 21MG PATCH. TD PRN (08:34)
[2019-04-23] MEDS: BUDESONIDE 0.5 MG/2 ML NEBU. NEB SCH ×2 (08:50→19:18)
[2019-04-23] MEDS: ALBUTEROL SULFATE 2.5 MG/3 ML NEBU. NEB SCH ×4 (08:50→19:18)
[2019-04-23 09:08] LABS: BASO % 0 % (0-3); EOS % 0 % (0-3); HEMATOCRIT 33.2 % (36.0-47.0); HEMOGLOBIN 11.1 g/dL (12.0-15.5); LYMPH # 0.8 x10^3/uL (1.0-4.8); LYMPH % 4 % (24-48); MEAN CORPUSCULAR HEMOGLOBIN 31 pg (25-35); MEAN CORPUSCULAR HGB CONC 34 g/dL (31-37); MEAN CORPUSCULAR VOLUME 93 fL (79-100); MONO # 0.9 x10^3/uL (0.0-1.1); MONO % 5 % (0-9); NEUT # 16.8 x10^3uL (1.8-7.7); NEUT % 91 % (31-73); PLATELET COUNT 227 x10^3/uL (140-400); RED BLOOD COUNT 3.58 x10^6/uL (3.50-5.40); WHITE BLOOD COUNT 18.5 x10^3/uL (4.0-11.0)
[2019-04-23] MEDS: ACETAMINOPHEN 325 MG TABLET. PO PRN ×2 (09:08→23:43)
[2019-04-23 09:16] LABS: CALCIUM 8.2 mg/dL (8.5-10.1); GFR 55.3; POTASSIUM 4.1 mmol/L (3.5-5.1)
[2019-04-23 10:02] LABS: % BANDS 22 % (0-9); % LYMPHS 4 % (24-48); % MONOS 4 % (0-10); % SEGS 70 % (35-66)
[2019-04-23 10:07] LABS: PLT ESTIMATE ADEQUATE (ADEQUATE); POIKILOCYTOSIS SLIGHT; TOXIC GRANULATION SLIGHT
[2019-04-23] MEDS: MORPHINE SULFATE 2 MG/ML VIAL. IV PRN (10:28)
--- NOTE | 2019-04-23 10:29 | PDOC ---
PROGRESS NOTES Chief Complaint Chief Complaint Right hip fracture s/p sx 7/5 - POD # 1 Mechanical fall traumatic, closed Hypertension noW HYPOTENSIVE History of left subclavian stenosis-on aspirin 81 History of CVA, ischemic AugustJuly 2018-status post 3 weeks in [facility] rehabilitation-she is interested in [facility], closer to home when she discharges CP History of Present Illness History of Present Illness having chest pains left-sided, heavy Hypotensive, systolic 100s On Norvasc and lisinopril 20 a 40 at home Shows her diary for blood pressure, she usually runs low Vitamin D levels are high Plan 500 mL bolus now EKG now Troponin 3 Normal saline 100 mL maintenance dC lisinopril and Norvasc Continue morphine, give first dose now Dw LOBO [place] Vitals Vitals Vital Signs Date Time Temp Pulse Resp B/P (MAP) Pulse Ox O2 Delivery O2 Flow Rate FiO2 04/23/19 08:50 91 Room Air 04/23/19 07:42 2.0 04/23/19 07:40 101 106/54 04/23/19 07:00 98.3 18 98.3 Physical Exam General: Alert, Oriented X3, Cooperative, No acute distress Heart: Regular rate, Normal S1, Normal S2 Lungs: Clear Abdomen: Normal bowel sounds, Soft, No tenderness, No hepatosplenomegaly, No masses Extremities: Other Skin: No rashes, No breakdown, No significant lesion Labs LABS Laboratory Tests Test 04/23/19 04:00 White Blood Count 18.5 x10^3/uL (4.0-11.0) Red Blood Count 3.58 x10^6/uL (3.50-5.40) Hemoglobin 11.1 g/dL (12.0-15.5) Hematocrit 33.2 % (36.0-47.0) Mean Corpuscular Volume 93 fL (79-100) Mean Corpuscular Hemoglobin 31 pg (25-35) Mean Corpuscular Hemoglobin Concent 34 g/dL (31-37) Red Cell Distribution Width 14.0 % (11.5-14.5) Platelet Count 227 x10^3/uL (140-400) Neutrophils (%) (Auto) 91 % (31-73) Lymphocytes (%) (Auto) 4 % (24-48) Monocytes (%) (Auto) 5 % (0-9) Eosinophils (%) (Auto) 0 % (0-3) Basophils (%) (Auto) 0 % (0-3) Neutrophils # (Auto) 16.8 x10^3uL (1.8-7.7) Lymphocytes # (Auto) 0.8 x10^3/uL (1.0-4.8) Monocytes # (Auto) 0.9 x10^3/uL (0.0-1.1) Eosinophils # (Auto) 0.0 x10^3/uL (0.0-0.7) Basophils # (Auto) 0.0 x10^3/uL (0.0-0.2) Segmented Neutrophils % 70 % (35-66) Band Neutrophils % 22 % (0-9) Lymphocytes % 4 % (24-48) Monocytes % 4 % (0-10) Toxic Granulation Slight Platelet Estimate Adequate (ADEQUATE) Poikilocytosis Slight Prothrombin Time 13.5 SEC (11.7-14.0) Prothromb Time International Ratio 1.1 (0.8-1.1) Sodium Level 127 mmol/L (136-145) Potassium Level 4.1 mmol/L (3.5-5.1) Chloride Level 93 mmol/L (98-107) Carbon Dioxide Level 25 mmol/L (21-32) Anion Gap 9 (6-14) Blood Urea Nitrogen 22 mg/dL (7-20) Creatinine 1.0 mg/dL (0.6-1.0) Estimated GFR (Cockcroft-Gault) 55.3 Glucose Level 128 mg/dL (70-99) Calcium Level 8.2 mg/dL (8.5-10.1) Review of Systems Review of Systems Chest pain, weak, the rest of ROS 14 point negative Comment Review of Relevant I have reviewed the following items nico (where applicable) has been applied. Labs Laboratory Tests Test 04/22/19 09:15 04/23/19 04:00 White Blood Count 13.6 x10^3/uL (4.0-11.0) 18.5 x10^3/uL (4.0-11.0) Red Blood Count 4.13 x10^6/uL (3.50-5.40) 3.58 x10^6/uL (3.50-5.40) Hemoglobin 12.9 g/dL (12.0-15.5) 11.1 g/dL (12.0-15.5) Hematocrit 37.9 % (36.0-47.0) 33.2 % (36.0-47.0) Mean Corpuscular Volume 92 fL (79-100) 93 fL (79-100) Mean Corpuscular Hemoglobin 31 pg (25-35) 31 pg (25-35) Mean Corpuscular Hemoglobin Concent 34 g/dL (31-37) 34 g/dL (31-37) Red Cell Distribution Width 14.1 % (11.5-14.5) 14.0 % (11.5-14.5) Platelet Count 265 x10^3/uL (140-400) 227 x10^3/uL (140-400) Neutrophils (%) (Auto) 84 % (31-73) 91 % (31-73) Lymphocytes (%) (Auto) 9 % (24-48) 4 % (24-48) Monocytes (%) (Auto) 6 % (0-9) 5 % (0-9) Eosinophils (%) (Auto) 1 % (0-3) 0 % (0-3) Basophils (%) (Auto) 0 % (0-3) 0 % (0-3) Neutrophils # (Auto) 11.5 x10^3uL (1.8-7.7) 16.8 x10^3uL (1.8-7.7) Lymphocytes # (Auto) 1.2 x10^3/uL (1.0-4.8) 0.8 x10^3/uL (1.0-4.8) Monocytes # (Auto) 0.8 x10^3/uL (0.0-1.1) 0.9 x10^3/uL (0.0-1.1) Eosinophils # (Auto) 0.1 x10^3/uL (0.0-0.7) 0.0 x10^3/uL (0.0-0.7) Basophils # (Auto) 0.1 x10^3/uL (0.0-0.2) 0.0 x10^3/uL (0.0-0.2) Prothrombin Time 12.9 SEC (11.7-14.0) 13.5 SEC (11.7-14.0) Prothromb Time International Ratio 1.0 (0.8-1.1) 1.1 (0.8-1.1) Sodium Level 135 mmol/L (136-145) 127 mmol/L (136-145) Potassium Level 3.9 mmol/L (3.5-5.1) 4.1 mmol/L (3.5-5.1) Chloride Level 99 mmol/L (98-107) 93 mmol/L (98-107) Carbon Dioxide Level 25 mmol/L (21-32) 25 mmol/L (21-32) Anion Gap 11 (6-14) 9 (6-14) Blood Urea Nitrogen 13 mg/dL (7-20) 22 mg/dL (7-20) Creatinine 0.7 mg/dL (0.6-1.0) 1.0 mg/dL (0.6-1.0) Estimated GFR (Cockcroft-Gault) 83.5 55.3 BUN/Creatinine Ratio 19 (6-20) Glucose Level 99 mg/dL (70-99) 128 mg/dL (70-99) Calcium Level 9.1 mg/dL (8.5-10.1) 8.2 mg/dL (8.5-10.1) Total Bilirubin 0.5 mg/dL (0.2-1.0) Aspartate Amino Transf (AST/SGOT) 21 U/L (15-37) Alanine Aminotransferase (ALT/SGPT) 26 U/L (14-59) Alkaline Phosphatase 113 U/L (46-116) Total Protein 7.5 g/dL (6.4-8.2) Albumin 3.5 g/dL (3.4-5.0) Albumin/Globulin Ratio 0.9 (1.0-1.7) 25-Hydroxy Vitamin D Total 135.0 ng/mL (30-100) Segmented Neutrophils % 70 % (35-66) Band Neutrophils % 22 % (0-9) Lymphocytes % 4 % (24-48) Monocytes % 4 % (0-10) Toxic Granulation Slight Platelet Estimate Adequate (ADEQUATE) Poikilocytosis Slight Laboratory Tests Test 04/23/19 04:00 White Blood Count 18.5 x10^3/uL (4.0-11.0) Red Blood Count 3.58 x10^6/uL (3.50-5.40) Hemoglobin 11.1 g/dL (12.0-15.5) Hematocrit 33.2 % (36.0-47.0) Mean Corpuscular Volume 93 fL (79-100) Mean Corpuscular Hemoglobin 31 pg (25-35) Mean Corpuscular Hemoglobin Concent 34 g/dL (31-37) Red Cell Distribution Width 14.0 % (11.5-14.5) Platelet Count 227 x10^3/uL (140-400) Neutrophils (%) (Auto) 91 % (31-73) Lymphocytes (%) (Auto) 4 % (24-48) Monocytes (%) (Auto) 5 % (0-9) Eosinophils (%) (Auto) 0 % (0-3) Basophils (%) (Auto) 0 % (0-3) Neutrophils # (Auto) 16.8 x10^3uL (1.8-7.7) Lymphocytes # (Auto) 0.8 x10^3/uL (1.0-4.8) Monocytes # (Auto) 0.9 x10^3/uL (0.0-1.1) Eosinophils # (Auto) 0.0 x10^3/uL (0.0-0.7) Basophils # (Auto) 0.0 x10^3/uL (0.0-0.2) Segmented Neutrophils % 70 % (35-66) Band Neutrophils % 22 % (0-9) Lymphocytes % 4 % (24-48) Monocytes % 4 % (0-10) Toxic Granulation Slight Platelet Estimate Adequate (ADEQUATE) Poikilocytosis Slight Prothrombin Time 13.5 SEC (11.7-14.0) Prothromb Time International Ratio 1.1 (0.8-1.1) Sodium Level 127 mmol/L (136-145) Potassium Level 4.1 mmol/L (3.5-5.1) Chloride Level 93 mmol/L (98-107) Carbon Dioxide Level 25 mmol/L (21-32) Anion Gap 9 (6-14) Blood Urea Nitrogen 22 mg/dL (7-20) Creatinine 1.0 mg/dL (0.6-1.0) Estimated GFR (Cockcroft-Gault) 55.3 Glucose Level 128 mg/dL (70-99) Calcium Level 8.2 mg/dL (8.5-10.1) Medications Current Medications Ondansetron HCl (Zofran) 4 mg PRN Q6HRS PRN IV NAUSEA/VOMITING 1ST CHOICE; Start 04/22/19 at 06:00 Acetaminophen (Tylenol) 650 mg PRN Q6HRS PRN PO MILD PAIN 1-3 Last administered on 04/23/19at 09:08; Start 04/22/19 at 06:00 Acetaminophen/ Hydrocodone Bitart (Lortab 5/325) 1 tab PRN Q6HRS PRN PO MODERATE PAIN 4-6 Last administered on 04/23/19at 06:39; Start 04/22/19 at 06:00 Morphine Sulfate (Morphine Sulfate) 2 mg PRN Q2HR PRN IV SEVERE PAIN 7-10 Last administered on 04/22/19at 06:31; Start 04/22/19 at 06:00 Sodium Chloride 1,000 ml @ 100 mls/hr Q10H IV Last administered on 04/22/19at 06:30; Start 04/22/19 at 06:00; Stop 04/23/19 at 08:48; Status DC Acetaminophen (Tylenol) 650 mg PRN Q6HRS PO ; Start 04/22/19 at 09:00; Status UNV Amlodipine Besylate (Norvasc) 10 mg DAILY PO ; Start 04/22/19 at 09:00 Atorvastatin Calcium (Lipitor) 40 mg QHS PO Last administered on 04/22/19at 21:09; Start 04/22/19 at 21:00 Ergocalciferol (Vitamin D2) 50,000 unit WEEKLY PO ; Start 04/29/19 at 09:00 Gabapentin (Neurontin) 300 mg [id number] PO Last administered on 04/23/19at 06:31; Start 04/22/19 at 09:30 Lisinopril (Prinivil) 20 mg DAILY PO ; Start 04/22/19 at 09:00 Duloxetine HCl (Cymbalta) 60 mg DAILY PO Last administered on 04/23/19at 07:40; Start 04/22/19 at 10:00 Non-Formulary Medication (Fluticasone/ Vilanterol (Breo Ellipta 100-25 Mcg Inh)) 1 puff DAILY IH ; Start 04/22/19 at 09:00; Status UNV Levothyroxine Sodium (Synthroid) 50 mcg DAILY06 PO Last administered on 04/23/19at 06:31; Start 04/22/19 at 10:00 Non-Formulary Medication ([albuterol CFC free ] ) 90 mcg PRN Q4HRS IH ; Start 04/22/19 at 09:00; Status UNV Ondansetron HCl (Zofran) 4 mg PRN Q6HRS PRN IV NAUSEA/VOMITING; Start 04/22/19 at 09:00; Stop 04/23/19 at 08:53; Status DC Fentanyl Citrate (Fentanyl 2ml Vial) 25 mcg PRN Q5MIN PRN IV MILD PAIN 1-3; S tart 04/22/19 at 09:00; Stop 04/23/19 at 08:53; Status DC Fentanyl Citrate (Fentanyl 2ml Vial) 50 mcg PRN Q5MIN PRN IV MODERATE TO SEVERE PAIN; Start 04/22/19 at 09:00; Stop 04/23/19 at 08:53; Status DC Morphine Sulfate (Morphine Sulfate) 1 mg PRN Q10MIN PRN IV SEVERE PAIN 7-10; Start 04/22/19 at 09:00; Stop 04/23/19 at 08:53; Status DC Ringer's Solution 1,000 ml @ 30 mls/hr Q24H IV ; Start 04/22/19 at 08:58; Stop 04/22/19 at 20:57; Status DC Lidocaine HCl (Xylocaine-Mpf 1% 2ml Vial) 2 ml PRN 1X PRN ID PRIOR TO IV START; Start 04/22/19 at 09:00; Stop 04/23/19 at 08:53; Status DC Hydromorphone HCl (Dilaudid) 0.5 mg PRN Q10MIN PRN IV SEV PAIN, Second choice; Start 04/22/19 at 09:00; Stop 04/23/19 at 08:53; Status DC Prochlorperazine Edisylate (Compazine) 5 mg PACU PRN PRN IV NAUSEA, MRX1; Start 04/22/19 at 09:00; Stop 04/23/19 at 08:53; Status DC Budesonide (Pulmicort) 0.5 mg RTBID NEB Last administered on 04/23/19at 08:50; Start 04/22/19 at 20:00 Albuterol Sulfate (Ventolin Neb Soln) 2.5 mg RTQID NEB Last administered on 04/23/19at 08:50; Start 04/22/19 at 12:00 Albuterol Sulfate (Ventolin Neb Soln) 2.5 mg PRN Q6HRS PRN NEB SHORTNESS OF VINCE ATH; Start 04/22/19 at 09:15 Cefazolin Sodium 1 gm/Dextrose 50 ml @ 100 mls/hr 1X ONCE IV ; Start 04/22/19 at 09:45; Stop 04/22/19 at 10:14; Status UNV Cefazolin Sodium 50 ml @ 100 mls/hr 1X PREOP PRN IV PRIOR TO PROCEDURE Last administered on 04/22/19at 11:46; Start 04/22/19 at 06:00; Stop 04/23/19 at 05:59; Status DC Morphine Sulfate 5 mg/Ketorolac Tromethamine 30 mg/Ropivacaine 60 ml/Epinephrine HCl 0.5 mg/Sodium Chloride 100 ml @ 100 mls/hr 1X PERIOP ONCE INT ART ; Start 04/22/19 at 11:00; Stop 04/22/19 at 11:59; Status DC Propofol 20 ml @ As Directed STK-MED ONCE IV ; Start 04/22/19 at 10:59; Stop 04/22/19 at 11:00; Status DC Dexamethasone Sodium Phosphate (Decadron) 4 mg STK-MED ONCE .ROUTE ; Start 04/22/19 at 10:59; Stop 04/22/19 at 11:00; Status DC Lidocaine HCl (Lidocaine Pf 2% Vial) 5 ml STK-MED ONCE .ROUTE ; Start 04/22/19 at 10:59; Stop 04/22/19 at 11:00; Status DC Ondansetron HCl (Zofran) 4 mg STK-MED ONCE .ROUTE ; Start 04/22/19 at 10:59; Stop 04/22/19 at 11:00; Status DC Rocuronium Denio (Zemuron) 50 mg STK-MED ONCE .ROUTE ; Start 04/22/19 at 10:59; Stop 04/22/19 at 11:00; Status DC Fentanyl Citrate (Fentanyl 2ml Vial) 100 mcg STK-MED ONCE .ROUTE ; Start 04/22/19 at 10:59; Stop 04/22/19 at 11:00; Status DC Dexamethasone Sodium Phosphate (Decadron) 4 mg STK-MED ONCE .ROUTE ; Start 04/22/19 at 10:59; Stop 04/22/19 at 11:00; Status DC Albuterol/ Ipratropium (Duoneb) 3 ml 1X STAT NEB Last administered on 04/22/19at 11:25; Start 04/22/19 at 11:30; Stop 04/22/19 at 11:33; Status DC Albuterol/ Ipratropium (Duoneb) 3 ml STK-MED ONCE .ROUTE ; Start 04/22/19 at 11:33; Stop 04/22/19 at 11:34; Status DC Cefazolin Sodium 1 gm/Dextrose 50 ml @ 100 mls/hr Q6H IV ; Start 04/22/19 at 12:00; Stop 04/22/19 at 12:00; Status DC Acetaminophen/ Hydrocodone Bitart (Lortab 5/325) 1 tab PRN Q4HRS PRN PO PAIN Last administered on 04/22/19at 15:50; Start 04/22/19 at 11:45 Warfarin Sodium (Coumadin Per Pharmacy) 1 each PRN DAILY PRN MC SEE COMMENTS Last administered on 04/22/19at 15:00; Start 04/22/19 at 11:45 Cefazolin Sodium (Ancef) 1 gm Q6H IVP Last administered on 04/23/19at 06:32; Start 04/22/19 at 16:00; Stop 04/23/19 at 06:01; Status DC Phenylephrine HCl (PHENYLEPHRINE in 0.9% NACL PF) 1 mg STK-MED ONCE IV ; Start 04/22/19 at 12:10; Stop 04/22/19 at 12:11; Status DC Sodium Chloride (SODIUM CHLORIDE 20ml) 20 ml STK-MED ONCE IJ Last administered on 04/22/19at 12:20; Start 04/22/19 at 12:20; Stop 04/22/19 at 12:43; Status DC Fentanyl Citrate (Fentanyl 2ml Vial) 100 mcg STK-MED ONCE .ROUTE ; Start 04/22/19 at 12:35; Stop 04/22/19 at 12:36; Status DC Glycopyrrolate (Robinul) 1 mg STK-MED ONCE .ROUTE ; Start 04/22/19 at 13:04; Stop 04/22/19 at 13:05; Status DC Neostigmine Methylsulfate (Neostigmine Methylsulfate) 5 mg STK-MED ONCE .ROUTE ; Start 04/22/19 at 13:04; Stop 04/22/19 at 13:05; Status DC Ephedrine Sulfate (ePHEDrine PF IN SALINE SYRINGE) 50 mg STK-MED ONCE IV ; Start 04/22/19 at 13:12; Stop 04/22/19 at 13:13; Status DC Sevoflurane (Ultane) 60 ml STK-MED ONCE IH ; Start 04/22/19 at 13:15; Stop 04/22/19 at 13:16; Status DC Warfarin Sodium (Coumadin) 7.5 mg 1X WARF ONCE PO Last administered on 04/22/19at 15:46; Start 04/22/19 at 16:00; Stop 04/22/19 at 16:01; Status DC Nicotine (Nicoderm Cq 21mg) 1 patch PRN DAILY PRN TD SMOKING CESSATION Last administered on 04/23/19at 08:34; Start 04/23/19 at 08:30 Active Scripts Active Reported Aspirin 81 Mg Tab.chew 1 Tab PO DAILY Atorvastatin Calcium 40 Mg Tablet 1 Tab PO QHS Amlodipine Besylate 10 Mg Tablet 10 Mg PO DAILY [albuterol CFC free ] 90 Mcg IH PRN Q4HRS Tylenol (Acetaminophen) 325 Mg Tablet 2 Tab PO PRN Q6HRS Breo Ellipta 100-25 Mcg Inh (Fluticasone/Vilanterol) 1 Each Aer.pow.ba 1 Puff IH DAILY Cymbalta (Duloxetine Hcl) 60 Mg Capsule.dr 60 Mg PO DAILY Levothyroxine Sodium 50 Mcg Tablet 50 Mcg PO DAILYAC Vitamin D2 (Ergocalciferol (Vitamin D2)) 50,000 Unit Capsule 1 Cap PO WEEKLY Gabapentin (Gabapentin) 300 Mg Capsule 300 Mg PO [id number] Lisinopril 20 Mg Tablet 1 Tab PO DAILY Vitals/I & O Vital Sign - Last 24 Hours 04/22/19 04/22/19 04/22/19 04/22/19 11:00 11:13 13:43 13:43 Temp 97.6 98.6 99.4 97.6 98.6 99.4 Pulse 90 84 94 Resp 18 22 14 B/P (MAP) 122/48 (72) 150/71 116/58 Pulse Ox 97 94 98 O2 Delivery Room Air Room Air Mask Simple Mask O2 Flow Rate 2.0 8 8 04/22/19 04/22/19 04/22/19 04/22/19 13:58 14:13 14:17 14:40 Temp 99.4 98.0 99.4 98.0 Pulse 98 96 102 Resp 14 16 18 B/P (MAP) 116/63 109/61 122/66 (84) Pulse Ox 94 97 98 O2 Delivery Nasal Cannula Nasal Cannula Nasal Cannula Room Air O2 Flow Rate 4 4 4 04/22/19 04/22/19 04/22/19 04/22/19 15:00 15:00 15:15 15:25 Temp 98.0 98.0 Pulse 102 84 98 Resp 18 18 B/P (MAP) 122/66 (84) 120/61 (80) 117/62 (80) Pulse Ox 98 98 94 98 O2 Delivery Nasal Cannula Room Air Room Air Nasal Cannula O2 Flow Rate 2.0 4.0 04/22/19 04/22/19 04/22/19 04/22/19 15:30 15:45 15:50 16:30 Pulse 100 99 95 Resp 16 B/P (MAP) 122/65 (84) 118/60 (79) 125/63 (83) Pulse Ox 96 90 95 O2 Delivery Room Air Room Air Room Air Room Air 04/22/19 04/22/19 04/22/19 04/22/19 16:51 19:00 19:45 19:53 Temp 98.4 98.4 Pulse 107 99 Resp 16 18 B/P (MAP) 87/42 (57) 91/46 (61) Pulse Ox 92 O2 Delivery Room Air Nasal Cannula Nasal Cannula Nasal Cannula O2 Flow Rate 2.0 2.0 2.0 04/22/19 04/22/19 04/23/19 04/23/19 20:10 23:00 03:00 06:39 Temp 97.8 98.3 97.8 98.3 Pulse 98 89 Resp 18 18 B/P (MAP) 97/51 (66) 91/41 (58) Pulse Ox 97 96 O2 Delivery Nasal Cannula Nasal Cannula Nasal Cannula Room Air O2 Flow Rate 2.0 2.0 2.0 04/23/19 04/23/19 04/23/19 04/23/19 07:00 07:15 07:40 07:42 Temp 98.3 98.3 Pulse 101 101 Resp 18 B/P (MAP) 106/54 (71) 106/54 Pulse Ox 92 92 O2 Delivery Nasal Cannula Nasal Cannula Nasal Cannula O2 Flow Rate 2.0 2.0 2.0 04/23/19 08:50 Pulse Ox 91 O2 Delivery Room Air Intake and Output 04/22/19 04/22/19 04/23/19 15:00 23:00 07:00 Intake Total 1065 ml 1160 ml 800 ml Output Total 1800 ml 250 ml Balance -735 ml 910 ml 800 ml DESTINEE DOWNEY MD Apr 23, 2019 10:28
[2019-04-23] MEDS ORDERED: IV NORMAL SALINE 500ML BAG 500 ML IV ONE (10:30)
[2019-04-23 11:00] VITALS: BP 99/51
--- NOTE | 2019-04-23 11:27 | EKG ---
[facility] [address] [place] [address] Test Date: 2019-04-23 Test Time: 11:00:38 Pat Name: MARYELLEN BLANCHARD Department: Room: [facility] Gender: F [employer] Consultant: : [id number] Requested By: DESTINEE DOWNEY Order Number: [id number] Reading MD: Measurements Intervals [place] Rate: 87 P: 68 AK: 162 QRS: 24 QRSD: 78 T: 40 QT: 346 QTc: 417 Interpretive Statements SINUS RHYTHM OTHERWISE NORMAL ECG RI6.01 No previous ECG available for comparison
--- NOTE | 2019-04-23 14:16 | NUR ---
Pharmacy Warfarin Dosing Note S:Pharmacy consulted to assist with anticoagulation therapy started 04/22/19 with target INR: 2 -3 O:MARYELLEN BLANCHARD is a 68 year old F with Hip Fracture LABS: Last INR: 1.1 Last HGB: 11.1 Last HCT: 33.2 Last PLT: 227 Last dose of 7.5 mg given on 04/22/19 at 1546 Previous Regimen: Vitamin K given: Drug Interaction Changes: Ongoing Drug Interactions: A:INR of 1.1 is below desired range. Target range for this patient is: 2 -3 P: Warfarin dose: 5 mg Today at 1600 Bridge Therapy: None Next INR due IN AM Pharmacy anticoagulation service will continue to follow. [facility], 04/23/19 0468
[2019-04-23 15:00] VITALS: BP 104/50
[2019-04-23 19:15] VITALS: BP 92/43
[2019-04-23] MEDS: ATORVASTATIN CALCIUM 40 MG TABLET. PO SCH (21:05)
[2019-04-23 23:24] VITALS: BP 98/49
[2019-04-24 03:32] VITALS: BP 102/49
[2019-04-24] MEDS: GABAPENTIN 300 MG CAPSULE. PO SCH ×3 (05:42→20:39)
[2019-04-24] MEDS: LEVOTHYROXINE 50 MCG TABLET PO SCH (05:42)
[2019-04-24] MEDS: IV NORMAL SALINE 1000ML BAG 1,000 ML IV SCH (06:30)
[2019-04-24 07:00] VITALS: BP 128/49
[2019-04-24] MEDS: ALBUTEROL SULFATE 2.5 MG/3 ML NEBU. NEB SCH ×4 (07:09→20:49)
[2019-04-24] MEDS: BUDESONIDE 0.5 MG/2 ML NEBU. NEB SCH ×2 (07:09→20:49)
[2019-04-24] MEDS: HYDROcodone/APAP 5/325MG 1 TAB TABLET PO PRN ×3 (07:39→19:24)
[2019-04-24] MEDS: NICOTINE 21MG PATCH. TD PRN (07:39)
[2019-04-24 08:36] LABS: PROTHROMBIN TIME PATIENT 13.9 SEC (11.7-14.0)
[2019-04-24 09:14] LABS: BASO # 0.1 x10^3/uL (0.0-0.2); BASO % 1 % (0-3); EOS # 0.1 x10^3/uL (0.0-0.7); EOS % 1 % (0-3); HEMATOCRIT 31.5 % (36.0-47.0); HEMOGLOBIN 10.8 g/dL (12.0-15.5); LYMPH # 1.9 x10^3/uL (1.0-4.8); LYMPH % 18 % (24-48); MEAN CORPUSCULAR HEMOGLOBIN 32 pg (25-35); MEAN CORPUSCULAR HGB CONC 34 g/dL (31-37); MEAN CORPUSCULAR VOLUME 93 fL (79-100); MONO # 0.9 x10^3/uL (0.0-1.1); MONO % 9 % (0-9); NEUT % 72 % (31-73); PLATELET COUNT 207 x10^3/uL (140-400)
[2019-04-24 09:15] LABS: CALCIUM 8.2 mg/dL (8.5-10.1); CREATININE 0.9 mg/dL (0.6-1.0); GFR 62.5; POTASSIUM 4.6 mmol/L (3.5-5.1)
--- NOTE | 2019-04-24 10:09 | PDOC ---
PROGRESS NOTES Chief Complaint Chief Complaint Right hip fracture s/p sx 04/22 - POD # 2 Mechanical fall traumatic, closed Hypertension noW HYPOTENSIVE- resolved History of left subclavian stenosis-on aspirin 81 History of CVA, ischemic AugustJuly 2018-status post 3 weeks in [facility] rehabilitation-she is interested in [facility] rehabilitation, closer to home when she discharges CP - NOrmal EKG 04/23/19 History of Present Illness History of Present Illness No chest pains today EKG done yesterday I have personally reviewed normal Hypotension also resolved Seems to be having a better day today Work with physical therapy Thursday, recommended [facility] She would like to go to [facility], did have a pleasant experience with [facility] but too far for her and family Plan Social work Thursday [facility] CPM for now Vitamin D levels are high Continue warfarin post hip surgery x 30 days GOal INR 2-3 TARget dc thursday to [facility] Vitals Vitals Vital Signs Date Time Temp Pulse Resp B/P (MAP) Pulse Ox O2 Delivery O2 Flow Rate FiO2 04/24/19 08:41 95 Room Air 04/24/19 07:00 98.3 55 18 128/49 (75) 98.3 04/23/19 11:00 2.0 Physical Exam General: Alert, Oriented X3, Cooperative, No acute distress Heart: Regular rate, Normal S1, Normal S2 Lungs: Clear Abdomen: Normal bowel sounds, Soft, No tenderness, No hepatosplenomegaly, No masses Extremities: Other Skin: No rashes, No breakdown, No significant lesion Labs LABS Laboratory Tests Test 04/24/19 06:50 White Blood Count 11.0 x10^3/uL (4.0-11.0) Red Blood Count 3.40 x10^6/uL (3.50-5.40) Hemoglobin 10.8 g/dL (12.0-15.5) Hematocrit 31.5 % (36.0-47.0) Mean Corpuscular Volume 93 fL (79-100) Mean Corpuscular Hemoglobin 32 pg (25-35) Mean Corpuscular Hemoglobin Concent 34 g/dL (31-37) Red Cell Distribution Width 14.0 % (11.5-14.5) Platelet Count 207 x10^3/uL (140-400) Neutrophils (%) (Auto) 72 % (31-73) Lymphocytes (%) (Auto) 18 % (24-48) Monocytes (%) (Auto) 9 % (0-9) Eosinophils (%) (Auto) 1 % (0-3) Basophils (%) (Auto) 1 % (0-3) Neutrophils # (Auto) 8.0 x10^3uL (1.8-7.7) Lymphocytes # (Auto) 1.9 x10^3/uL (1.0-4.8) Monocytes # (Auto) 0.9 x10^3/uL (0.0-1.1) Eosinophils # (Auto) 0.1 x10^3/uL (0.0-0.7) Basophils # (Auto) 0.1 x10^3/uL (0.0-0.2) Prothrombin Time 13.9 SEC (11.7-14.0) Prothromb Time International Ratio 1.1 (0.8-1.1) Sodium Level 140 mmol/L (136-145) Potassium Level 4.6 mmol/L (3.5-5.1) Chloride Level 105 mmol/L (98-107) Carbon Dioxide Level 26 mmol/L (21-32) Anion Gap 9 (6-14) Blood Urea Nitrogen 23 mg/dL (7-20) Creatinine 0.9 mg/dL (0.6-1.0) Estimated GFR (Cockcroft-Gault) 62.5 Glucose Level 83 mg/dL (70-99) Calcium Level 8.2 mg/dL (8.5-10.1) Review of Systems Review of Systems A 14 point ROS was completed with the following noted as positive: Other systems reviewed and negative. \CONSTITUTIONAL: No fever or chills EYES: No recent changes SKIN: No rash or itching CARDIOVASCULAR: No chest pain, syncope, palpitations, or edema RESPIRATORY: No SOB or cough GASTROINTESTINAL: No nausea, vomiting or abdominal pain NEUROLOGICAL: No headaches or weakness ENDOCRINE: No cold or heat intolerance GENITOURINARY: No urgency or frequency of urination MUSCULOSKELETAL: No back pain or joint pain LYMPHATICS: No enlarged lymph nodes PSYCHIATRIC: No anxiety or depression Comment Review of Relevant I have reviewed the following items nico (where applicable) has been applied. Labs Laboratory Tests Test 04/23/19 04:00 04/24/19 06:50 White Blood Count 18.5 x10^3/uL (4.0-11.0) 11.0 x10^3/uL (4.0-11.0) Red Blood Count 3.58 x10^6/uL (3.50-5.40) 3.40 x10^6/uL (3.50-5.40) Hemoglobin 11.1 g/dL (12.0-15.5) 10.8 g/dL (12.0-15.5) Hematocrit 33.2 % (36.0-47.0) 31.5 % (36.0-47.0) Mean Corpuscular Volume 93 fL (79-100) 93 fL (79-100) Mean Corpuscular Hemoglobin 31 pg (25-35) 32 pg (25-35) Mean Corpuscular Hemoglobin Concent 34 g/dL (31-37) 34 g/dL (31-37) Red Cell Distribution Width 14.0 % (11.5-14.5) 14.0 % (11.5-14.5) Platelet Count 227 x10^3/uL (140-400) 207 x10^3/uL (140-400) Neutrophils (%) (Auto) 91 % (31-73) 72 % (31-73) Lymphocytes (%) (Auto) 4 % (24-48) 18 % (24-48) Monocytes (%) (Auto) 5 % (0-9) 9 % (0-9) Eosinophils (%) (Auto) 0 % (0-3) 1 % (0-3) Basophils (%) (Auto) 0 % (0-3) 1 % (0-3) Neutrophils # (Auto) 16.8 x10^3uL (1.8-7.7) 8.0 x10^3uL (1.8-7.7) Lymphocytes # (Auto) 0.8 x10^3/uL (1.0-4.8) 1.9 x10^3/uL (1.0-4.8) Monocytes # (Auto) 0.9 x10^3/uL (0.0-1.1) 0.9 x10^3/uL (0.0-1.1) Eosinophils # (Auto) 0.0 x10^3/uL (0.0-0.7) 0.1 x10^3/uL (0.0-0.7) Basophils # (Auto) 0.0 x10^3/uL (0.0-0.2) 0.1 x10^3/uL (0.0-0.2) Segmented Neutrophils % 70 % (35-66) Band Neutrophils % 22 % (0-9) Lymphocytes % 4 % (24-48) Monocytes % 4 % (0-10) Toxic Granulation Slight Platelet Estimate Adequate (ADEQUATE) Poikilocytosis Slight Prothrombin Time 13.5 SEC (11.7-14.0) 13.9 SEC (11.7-14.0) Prothromb Time International Ratio 1.1 (0.8-1.1) 1.1 (0.8-1.1) Sodium Level 127 mmol/L (136-145) 140 mmol/L (136-145) Potassium Level 4.1 mmol/L (3.5-5.1) 4.6 mmol/L (3.5-5.1) Chloride Level 93 mmol/L (98-107) 105 mmol/L (98-107) Carbon Dioxide Level 25 mmol/L (21-32) 26 mmol/L (21-32) Anion Gap 9 (6-14) 9 (6-14) Blood Urea Nitrogen 22 mg/dL (7-20) 23 mg/dL (7-20) Creatinine 1.0 mg/dL (0.6-1.0) 0.9 mg/dL (0.6-1.0) Estimated GFR (Cockcroft-Gault) 55.3 62.5 Glucose Level 128 mg/dL (70-99) 83 mg/dL (70-99) Calcium Level 8.2 mg/dL (8.5-10.1) 8.2 mg/dL (8.5-10.1) Laboratory Tests Test 04/24/19 06:50 White Blood Count 11.0 x10^3/uL (4.0-11.0) Red Blood Count 3.40 x10^6/uL (3.50-5.40) Hemoglobin 10.8 g/dL (12.0-15.5) Hematocrit 31.5 % (36.0-47.0) Mean Corpuscular Volume 93 fL (79-100) Mean Corpuscular Hemoglobin 32 pg (25-35) Mean Corpuscular Hemoglobin Concent 34 g/dL (31-37) Red Cell Distribution Width 14.0 % (11.5-14.5) Platelet Count 207 x10^3/uL (140-400) Neutrophils (%) (Auto) 72 % (31-73) Lymphocytes (%) (Auto) 18 % (24-48) Monocytes (%) (Auto) 9 % (0-9) Eosinophils (%) (Auto) 1 % (0-3) Basophils (%) (Auto) 1 % (0-3) Neutrophils # (Auto) 8.0 x10^3uL (1.8-7.7) Lymphocytes # (Auto) 1.9 x10^3/uL (1.0-4.8) Monocytes # (Auto) 0.9 x10^3/uL (0.0-1.1) Eosinophils # (Auto) 0.1 x10^3/uL (0.0-0.7) Basophils # (Auto) 0.1 x10^3/uL (0.0-0.2) Prothrombin Time 13.9 SEC (11.7-14.0) Prothromb Time International Ratio 1.1 (0.8-1.1) Sodium Level 140 mmol/L (136-145) Potassium Level 4.6 mmol/L (3.5-5.1) Chloride Level 105 mmol/L (98-107) Carbon Dioxide Level 26 mmol/L (21-32) Anion Gap 9 (6-14) Blood Urea Nitrogen 23 mg/dL (7-20) Creatinine 0.9 mg/dL (0.6-1.0) Estimated GFR (Cockcroft-Gault) 62.5 Glucose Level 83 mg/dL (70-99) Calcium Level 8.2 mg/dL (8.5-10.1) Medications Current Medications Ondansetron HCl (Zofran) 4 mg PRN Q6HRS PRN IV NAUSEA/VOMITING 1ST CHOICE; Start 04/22/19 at 06:00 Acetaminophen (Tylenol) 650 mg PRN Q6HRS PRN PO MILD PAIN 1-3 Last administered on 04/23/19at 23:43; Start 04/22/19 at 06:00 Acetaminophen/ Hydrocodone Bitart (Lortab 5/325) 1 tab PRN Q6HRS PRN PO MODERATE PAIN 4-6 Last administered on 04/23/19at 06:39; Start 04/22/19 at 06:00; Stop 04/23/19 at 14:25; Status DC Morphine Sulfate (Morphine Sulfate) 2 mg PRN Q2HR PRN IV SEVERE PAIN 7-10 Last administered on 04/23/19at 10:28; Start 04/22/19 at 06:00 Sodium Chloride 1,000 ml @ 100 mls/hr Q10H IV Last administered on 04/22/19at 06:30; Start 04/22/19 at 06:00; Stop 04/23/19 at 08:48; Status DC Acetaminophen (Tylenol) 650 mg PRN Q6HRS PO ; Start 04/22/19 at 09:00; Status UNV Amlodipine Besylate (Norvasc) 10 mg DAILY PO ; Start 04/22/19 at 09:00; Stop 04/23/19 at 10:26; Status DC Atorvastatin Calcium (Lipitor) 40 mg QHS PO Last administered on 04/23/19at 21:05; Start 04/22/19 at 21:00 Ergocalciferol (Vitamin D2) 50,000 unit WEEKLY PO ; Start 04/29/19 at 09:00 Gabapentin (Neurontin) 300 mg [id number] PO Last administered on 04/24/19at 05:42; Start 04/22/19 at 09:30 Lisinopril (Prinivil) 20 mg DAILY PO ; Start 04/22/19 at 09:00; Stop 04/23/19 at 10:26; Status DC Duloxetine HCl (Cymbalta) 60 mg DAILY PO Last administered on 04/23/19at 07:40; Start 04/22/19 at 10:00; Stop 04/24/19 at 07:41; Status DC Non-Formulary Medication (Fluticasone/ Vilanterol (Breo Ellipta 100-25 Mcg Inh)) 1 puff DAILY IH ; Start 04/22/19 at 09:00; Status UNV Levothyroxine Sodium (Synthroid) 50 mcg DAILY06 PO Last administered on 04/24/19at 05:42; Start 04/22/19 at 10:00 Non-Formulary Medication ([albuterol CFC free ] ) 90 mcg PRN Q4HRS IH ; Start 04/22/19 at 09:00; Status UNV Ondansetron HCl (Zofran) 4 mg PRN Q6HRS PRN IV NAUSEA/VOMITING; Start 04/22/19 at 09:00; Stop 04/23/19 at 08:53; Status DC Fentanyl Citrate (Fentanyl 2ml Vial) 25 mcg PRN Q5MIN PRN IV MILD PAIN 1-3; Start 04/22/19 at 09:00; Stop 04/23/19 at 08:53; Status DC Fentanyl Citrate (Fentanyl 2ml Vial) 50 mcg PRN Q5MIN PRN IV MODERATE TO SEVERE PAIN; Start 04/22/19 at 09:00; Stop 04/23/19 at 08:53; Status DC Morphine Sulfate (Morphine Sulfate) 1 mg PRN Q10MIN PRN IV SEVERE PAIN 7-10; Start 04/22/19 at 09:00; Stop 04/23/19 at 08:53; Status DC Ringer's Solution 1,000 ml @ 30 mls/hr Q24H IV ; Start 04/22/19 at 08:58; Stop 04/22/19 at 20:57; Status DC Lidocaine HCl (Xylocaine-Mpf 1% 2ml Vial) 2 ml PRN 1X PRN ID PRIOR TO IV START; Start 04/22/19 at 09:00; Stop 04/23/19 at 08:53; Status DC Hydromorphone HCl (Dilaudid) 0.5 mg PRN Q10MIN PRN IV SEV PAIN, Second choice; Start 04/22/19 at 09:00; Stop 04/23/19 at 08:53; Status DC Prochlorperazine Edisylate (Compazine) 5 mg PACU PRN PRN IV NAUSEA, MRX1; S tart 04/22/19 at 09:00; Stop 04/23/19 at 08:53; Status DC Budesonide (Pulmicort) 0.5 mg RTBID NEB Last administered on 04/24/19at 07:09; Start 04/22/19 at 20:00 Albuterol Sulfate (Ventolin Neb Soln) 2.5 mg RTQID NEB Last administered on 04/24/19at 07:09; Start 04/22/19 at 12:00 Albuterol Sulfate (Ventolin Neb Soln) 2.5 mg PRN Q6HRS PRN NEB SHORTNESS OF BREATH; Start 04/22/19 at 09:15 Cefazolin Sodium 1 gm/Dextrose 50 ml @ 100 mls/hr 1X ONCE IV ; Start 04/22/19 at 09:45; Stop 04/22/19 at 10:14; Status UNV Cefazolin Sodium 50 ml @ 100 mls/hr 1X PREOP PRN IV PRIOR TO PROCEDURE Last administered on 04/22/19at 11:46; Start 04/22/19 at 06:00; Stop 04/23/19 at 05:59; Status DC Morphine Sulfate 5 mg/Ketorolac Tromethamine 30 mg/Ropivacaine 60 ml/Epinephrine HCl 0.5 mg/Sodium Chloride 100 ml @ 100 mls/hr 1X PERIOP ONCE INT ART ; Start 04/22/19 at 11:00; Stop 04/22/19 at 11:59; Status DC Propofol 20 ml @ As Directed STK-MED ONCE IV ; Start 04/22/19 at 10:59; Stop 04/22/19 at 11:00; Status DC Dexamethasone Sodium Phosphate (Decadron) 4 mg STK-MED ONCE .ROUTE ; Start 04/22/19 at 10:59; Stop 04/22/19 at 11:00; Status DC Lidocaine HCl (Lidocaine Pf 2% Vial) 5 ml STK-MED ONCE .ROUTE ; Start 04/22/19 at 10:59; Stop 04/22/19 at 11:00; Status DC Ondansetron HCl (Zofran) 4 mg STK-MED ONCE .ROUTE ; Start 04/22/19 at 10:59; Stop 04/22/19 at 11:00; Status DC Rocuronium [place] (Zemuron) 50 mg STK-MED ONCE .ROUTE ; Start 04/22/19 at 10:59; Stop 04/22/19 at 11:00; Status DC Fentanyl Citrate (Fentanyl 2ml Vial) 100 mcg STK-MED ONCE .ROUTE ; Start 04/22/19 at 10:59; Stop 04/22/19 at 11:00; Status DC Dexamethasone Sodium Phosphate (Decadron) 4 mg STK-MED ONCE .ROUTE ; Start 04/22/19 at 10:59; Stop 04/22/19 at 11:00; Status DC Albuterol/ Ipratropium (Duoneb) 3 ml 1X STAT NEB Last administered on 04/22/19at 11:25; Start 04/22/19 at 11:30; Stop 04/22/19 at 11:33; Status DC Albuterol/ Ipratropium (Duoneb) 3 ml STK-MED ONCE .ROUTE ; Start 04/22/19 at 11:33; Stop 04/22/19 at 11:34; Status DC Cefazolin Sodium 1 gm/Dextrose 50 ml @ 100 mls/hr Q6H IV ; Start 04/22/19 at 12:00; Stop 04/22/19 at 12:00; Status DC Acetaminophen/ Hydrocodone Bitart (Lortab 5/325) 1 tab PRN Q4HRS PRN PO MODER ATE PAIN 4-6 Last administered on 04/24/19at 07:39; Start 04/22/19 at 11:45 Warfarin Sodium (Coumadin Per Pharmacy) 1 each PRN DAILY PRN MC SEE COMMENTS Last administered on 04/23/19at 14:16; Start 04/22/19 at 11:45 Cefazolin Sodium (Ancef) 1 gm Q6H IVP Last administered on 04/23/19at 06:32; Start 04/22/19 at 16:00; Stop 04/23/19 at 06:01; Status DC Phenylephrine HCl (PHENYLEPHRINE in 0.9% NACL PF) 1 mg STK-MED ONCE IV ; Start 04/22/19 at 12:10; Stop 04/22/19 at 12:11; Status DC Sodium Chloride (SODIUM CHLORIDE 20ml) 20 ml STK-MED ONCE IJ Last administered on 04/22/19at 12:20; Start 04/22/19 at 12:20; Stop 04/22/19 at 12:43; Status DC Fentanyl Citrate (Fentanyl 2ml Vial) 100 mcg STK-MED ONCE .ROUTE ; Start 04/22/19 at 12:35; Stop 04/22/19 at 12:36; Status DC Glycopyrrolate (Robinul) 1 mg STK-MED ONCE .ROUTE ; Start 04/22/19 at 13:04; Stop 04/22/19 at 13:05; Status DC Neostigmine Methylsulfate (Neostigmine Methylsulfate) 5 mg STK-MED ONCE .ROUTE ; Start 04/22/19 at 13:04; Stop 04/22/19 at 13:05; Status DC Ephedrine Sulfate (ePHEDrine PF IN SALINE SYRINGE) 50 mg STK-MED ONCE IV ; Start 04/22/19 at 13:12; Stop 04/22/19 at 13:13; Status DC Sevoflurane (Ultane) 60 ml STK-MED ONCE IH ; Start 04/22/19 at 13:15; Stop 04/22/19 at 13:16; Status DC Warfarin Sodium (Coumadin) 7.5 mg 1X WARF ONCE PO Last administered on 04/22/19at 15:46; Start 04/22/19 at 16:00; Stop 04/22/19 at 16:01; Status DC Nicotine (Nicoderm Cq 21mg) 1 patch PRN DAILY PRN TD SMOKING CESSATION Last administered on 04/24/19at 07:39; Start 04/23/19 at 08:30 Sodium Chloride 1,000 ml @ 100 mls/hr Q10H IV Last administered on 04/24/19at 06:30; Start 04/23/19 at 10:30 Sodium Chloride 500 ml @ 500 mls/hr 1X ONCE IV Last administered on 04/23/19at 10:32; Start 04/23/19 at 10:30; Stop 04/23/19 at 11:29; Status DC Duloxetine HCl (Cymbalta) 60 mg HS PO ; Start 04/24/19 at 21:00 Active Scripts Active Reported Aspirin 81 Mg Tab.chew 1 Tab PO DAILY Atorvastatin Calcium 40 Mg Tablet 1 Tab PO QHS Amlodipine Besylate 10 Mg Tablet 10 Mg PO DAILY [albuterol CFC free ] 90 Mcg IH PRN Q4HRS Tylenol (Acetaminophen) 325 Mg Tablet 2 Tab PO PRN Q6HRS Breo Ellipta 100-25 Mcg Inh (Fluticasone/Vilanterol) 1 Each Aer.pow.ba 1 Puff IH DAILY Cymbalta (Duloxetine Hcl) 60 Mg Capsule.dr 60 Mg PO DAILY Levothyroxine Sodium 50 Mcg Tablet 50 Mcg PO DAILYAC Vitamin D2 (Ergocalciferol (Vitamin D2)) 50,000 Unit Capsule 1 Cap PO WEEKLY Gabapentin (Gabapentin) 300 Mg Capsule 300 Mg PO [id number] Lisinopril 20 Mg Tablet 1 Tab PO DAILY Vitals/I & O Vital Sign - Last 24 Hours 04/23/19 04/23/19 04/23/19 04/23/19 10:28 11:00 11:47 15:00 Temp 98.4 98.4 98.4 98.4 Pulse 92 98 Resp 18 18 B/P (MAP) 99/51 (67) 104/50 (68) Pulse Ox 91 92 92 91 O2 Delivery Room Air Nasal Cannula Room Air Room Air O2 Flow Rate 2.0 04/23/19 04/23/19 04/23/19 04/23/19 16:57 19:15 19:20 19:20 Temp 98.1 98.1 Pulse 93 Resp 18 B/P (MAP) 92/43 (59) Pulse Ox 94 96 93 93 O2 Delivery Room Air Room Air Room Air Room Air 04/23/19 04/23/19 04/24/19 04/24/19 20:00 23:24 03:32 07:00 Temp 98.8 99.1 98.3 98.8 99.1 98.3 Pulse 96 99 55 Resp 18 18 18 B/P (MAP) 98/49 (65) 102/49 (66) 128/49 (75) Pulse Ox 91 93 94 O2 Delivery Nasal Cannula Room Air Room Air Room Air 04/24/19 04/24/19 04/24/19 04/24/19 07:04 07:12 07:39 08:41 Pulse Ox 95 95 95 O2 Delivery Room Air Room Air Room Air Room Air Intake and Output 04/23/19 04/23/19 04/24/19 15:00 23:00 07:00 Intake Total 780 ml Output Total 4000 ml Balance -3220 ml DESTINEE DOWNEY MD Apr 24, 2019 10:09
[2019-04-24 11:00] VITALS: BP 113/54
--- NOTE | 2019-04-24 12:49 | NUR ---
Pharmacy Warfarin Dosing Note S:Pharmacy consulted to assist with anticoagulation therapy started 04/22/19 with target INR: 2 -3 O:MARYELLEN BLANCHARD is a 68 year old F with Hip Fracture LABS: Last INR: 1.1 Last HGB: 10.8 Last HCT: 31.5 Last PLT: 207 Last dose of Hold given on 04/23/19 at 1600 Previous Regimen: Vitamin K given: Drug Interaction Changes: Ongoing Drug Interactions: A:INR of 1.1 is below desired range. Target range for this patient is: 2 -3 P: Warfarin dose: 7.5 mg Today at 1600 Bridge Therapy: None Next INR due IN AM Pharmacy anticoagulation service will continue to follow. JARVIS FROTUNE [facility], 04/24/19 [id number]
[2019-04-24 15:00] VITALS: BP 129/55
[2019-04-24] MEDS ORDERED: WARFARIN 7.5 MG TABLET. PO ONE (16:00)
[2019-04-24 19:15] VITALS: BP 99/53
[2019-04-24] MEDS: ATORVASTATIN CALCIUM 40 MG TABLET. PO SCH (20:38)
[2019-04-24] MEDS ORDERED: DULoxetine HCL 30 MG CAPSULE.DR PO SCH (21:00)
[2019-04-24 23:16] VITALS: BP 114/53
[2019-04-25 03:13] VITALS: BP 116/62
[2019-04-25 04:12] LABS: PROTHROMBIN TIME PATIENT 13.8 SEC (11.7-14.0)
[2019-04-25] MEDS: HYDROcodone/APAP 5/325MG 1 TAB TABLET PO PRN ×3 (06:00→16:14)
[2019-04-25] MEDS: LEVOTHYROXINE 50 MCG TABLET PO SCH (06:00)
[2019-04-25] MEDS: GABAPENTIN 300 MG CAPSULE. PO SCH ×2 (06:00→16:14)
[2019-04-25 07:00] VITALS: BP 106/54
[2019-04-25] MEDS: BUDESONIDE 0.5 MG/2 ML NEBU. NEB SCH (07:08)
[2019-04-25] MEDS: ALBUTEROL SULFATE 2.5 MG/3 ML NEBU. NEB SCH ×3 (07:08→15:01)
[2019-04-25 11:00] VITALS: BP 127/57
[2019-04-25] MEDS ORDERED: ALBU2.5V8 NEB (11:59)
[2019-04-25] MEDS ORDERED: WARF10TA45 MC (11:59)
[2019-04-25] MEDS ORDERED: NICO1PAT25 TP (11:59)
[2019-04-25] MEDS ORDERED: HYDR-2761 PO (11:59)
[2019-04-25] MEDS ORDERED: ACET325T9 PO (11:59)
--- NOTE | 2019-04-25 12:03 | SNU/HH DC ---
DISCHARGE ORDERS DISCHARGE INFORMATION: DISCHARGE DATE: Apr 25, 2019 FINAL DIAGNOSIS hip fracture htn tobacco use disorder weakness obesity, BMI 31 CONDITION ON DISCHARGE: Stable CODE STATUS: Code Status: Full ALF: SNF STAY <30 DAYS: Yes POST DISCHARGE ORDERS: ACTIVITY ORDERS: Activity as tolerated, Other, see below WEIGHT BEARING STATUS: As tolerated BATHING ORDERS: Shower-keep dressing dry DIET AFTER DISCHARGE: Cardiac WOUND/INCISION CARE: Other, see below FOLLOW-UP: PHYSICIAN FOLLOW-UP: per SNU ADDITIONAL FOLLOW-UP: f/u Dr. Esquivel, 1 weeks LAB ORDERS FOR FOLLOW-UP: her vitamin D level was too high TREATMENT/EQUIPMENT ORDERS: ADAPTIVE EQUIPMENT NEEDED: Front wheeled walker Physical Therapy For: Evalulation/Treatment Occupational Therapy For: Evaluation/Treatment DISCHARGE MEDICATIONS: Home Meds Active Scripts Albuterol Sulfate (Proair Hfa) 8.5 Gm Hfa.aer.ad, 2.5 MG NEB PRN Q6HRS PRN for SHORTNESS OF BREATH, #1 INHALER Prov:ADITYA JOHN MD 04/25/19 Nicotine (NICODERM CQ 14mg) 1 Each Patch.td24, 1 PATCH TP DAILY PRN for SMOKING CESSATION, #14 PATCH Prov:ADITYA JOHN MD 04/25/19 Warfarin Sodium (COUMADIN) 10 Mg Tablet, 1 EACH MC PRN DAILY PRN for SEE COMMENTS, #30 TAB Prov:ADITYA JOHN MD 04/25/19 Acetaminophen (TYLENOL) 325 Mg Tablet, 650 MG PO PRN Q8HRS PRN for MILD PAIN 1- 3, #30 TAB Prov:ADITYA JOHN MD 04/25/19 Hydrocodone Bit/Acetaminophen (HYDROCODONE-APAP 5-325 ) 1 Tab Tablet, 1 TAB PO PRN Q4HRS PRN for MODERATE PAIN 4-6, #30 TAB Prov:ADITYA JOHN MD 04/25/19 Reported Medications Aspirin (ASPIRIN) 81 Mg Tab.chew, 1 TAB PO DAILY for clot prevention, #30 TAB 3 Refills 04/22/19 Atorvastatin Calcium (ATORVASTATIN CALCIUM) 40 Mg Tablet, 1 TAB PO QHS for high cholestrol, #90 TAB 3 Refills 04/22/19 Amlodipine Besylate (AMLODIPINE BESYLATE) 10 Mg Tablet, 10 MG PO DAILY for HTN, TAB 04/22/19 [albuterol CFC free ] No Conflict Check, 90 MCG IH PRN Q4HRS for SOA 04/22/19 Fluticasone/Vilanterol (BREO ELLIPTA 100-25 MCG INH) 1 Each Aer.pow.ba, 1 PUFF IH DAILY for COPD, INHALER 04/22/19 Duloxetine Hcl (CYMBALTA) 60 Mg Capsule.dr, 60 MG PO DAILY for anxiety, CAP 09/10/18 Levothyroxine Sodium (LEVOTHYROXINE SODIUM) 50 Mcg Tablet, 50 MCG PO DAILYAC for THYROID SUPPLEMENT, #30 TAB 0 Refills 09/10/18 Gabapentin (GABAPENTIN ) 300 Mg Capsule, 300 MG PO [id number] for nerve pain, CAP 05/14/17 Lisinopril (LISINOPRIL) 20 Mg Tablet, 1 TAB PO DAILY, #30 TAB 5 Refills 05/14/17 Discontinued Reported Medications Acetaminophen (TYLENOL) 325 Mg Tablet, 2 TAB PO PRN Q6HRS for pain, #30 TAB 04/22/19 Ergocalciferol (Vitamin D2) (VITAMIN D2) 50,000 Unit Capsule, 1 CAP PO WEEKLY, #4 CAP 5 Refills 05/14/17 Pravastatin Sodium (PRAVASTATIN SODIUM) 40 Mg Tablet, 40 MG PO HS for lipids, TAB 09/10/18 Albuterol Sulfate (VENTOLIN HFA INHALER) 18 Gm Hfa.aer.ad, 2 PUFF INH QID for FOR ASTHMA, INHALER 0 Refills 09/10/18 Budesonide/Formoterol Fumarate (SYMBICORT 160-4.5 MCG INHALER) 10.2 Gm Hfa.aer.ad, 2 PUFF IH BID, #1 INHALER 3 Refills 05/14/17 ADITYA JOHN MD Apr 25, 2019 12:03
[2019-04-25] MEDS ORDERED: ENOXAPARIN 40 MG/0.4 ML SYRINGE. SQ SCH (13:00)
[2019-04-25 15:00] VITALS: BP 130/62
--- NOTE | 2019-04-25 15:03 | NUR ---
Pharmacy Warfarin Dosing Note S:Pharmacy consulted to assist with anticoagulation therapy started 04/22/19 with target INR: 2 -3 O:MARYELLEN BLANCHARD is a 68 year old F with Hip Fracture LABS: Last INR: 1.1 Last HGB: 10.8 Last HCT: 31.5 Last PLT: 207 Last dose of Hold given on 04/24/19 at 1508 Previous Regimen: Vitamin K given: Drug Interaction Changes: Ongoing Drug Interactions: A:INR of 1.1 is below desired range. Target range for this patient is: 2 -3 P: Warfarin dose: 7.5 mg Today at 1600 Bridge Therapy: None Next INR due IN AM Pharmacy anticoagulation service will continue to follow. JARVIS FORTUNE, [facility], 04/25/19 [id number]
[2019-04-25] MEDS ORDERED: WARFARIN 7.5 MG TABLET. PO ONE ×2 (16:00)
--- NOTE | 2019-04-25 16:34 | PDOC3 ---
Discharge Summary Visit Information Date of Admission: Apr 22, 2019 Date of Discharge: Apr 25, 2019 Final Diagnosis Right hip fracture s/p sx / - POD # 2 Mechanical fall traumatic, closed Hypertension noW HYPOTENSIVE- resolved History of left subclavian stenosis-on aspirin 81 History of CVA, ischemic AugustJuly 2018-status post 3 weeks in [facility] rehabilitation-she is interested in [facility], closer to home when she discharges CP - NOrmal EKG 04/23/19 Brief Hospital Course Allergies Allergies Coded Allergies Type Severity Reaction Last Updated Verified No Known Drug Allergies 05/15/17 No Vital Signs Vital Signs Date Time Temp Pulse Resp B/P (MAP) Pulse Ox O2 Delivery O2 Flow Rate FiO2 04/25/19 16:14 Room Air 04/25/19 15:00 97.7 101 18 130/62 (84) 92 97.7 04/25/19 07:00 94.0 Lab Results Laboratory Tests Test 04/24/19 06:50 04/25/19 03:30 White Blood Count 11.0 x10^3/uL (4.0-11.0) Red Blood Count 3.40 x10^6/uL (3.50-5.40) Hemoglobin 10.8 g/dL (12.0-15.5) Hematocrit 31.5 % (36.0-47.0) Mean Corpuscular Volume 93 fL (79-100) Mean Corpuscular Hemoglobin 32 pg (25-35) Mean Corpuscular Hemoglobin Concent 34 g/dL (31-37) Red Cell Distribution Width 14.0 % (11.5-14.5) Platelet Count 207 x10^3/uL (140-400) Neutrophils (%) (Auto) 72 % (31-73) Lymphocytes (%) (Auto) 18 % (24-48) Monocytes (%) (Auto) 9 % (0-9) Eosinophils (%) (Auto) 1 % (0-3) Basophils (%) (Auto) 1 % (0-3) Neutrophils # (Auto) 8.0 x10^3uL (1.8-7.7) Lymphocytes # (Auto) 1.9 x10^3/uL (1.0-4.8) Monocytes # (Auto) 0.9 x10^3/uL (0.0-1.1) Eosinophils # (Auto) 0.1 x10^3/uL (0.0-0.7) Basophils # (Auto) 0.1 x10^3/uL (0.0-0.2) Prothrombin Time 13.9 SEC (11.7-14.0) 13.8 SEC (11.7-14.0) Prothromb Time International Ratio 1.1 (0.8-1.1) 1.1 (0.8-1.1) Sodium Level 140 mmol/L (136-145) Potassium Level 4.6 mmol/L (3.5-5.1) Chloride Level 105 mmol/L (98-107) Carbon Dioxide Level 26 mmol/L (21-32) Anion Gap 9 (6-14) Blood Urea Nitrogen 23 mg/dL (7-20) Creatinine 0.9 mg/dL (0.6-1.0) Estimated GFR (Cockcroft-Gault) 62.5 Glucose Level 83 mg/dL (70-99) Calcium Level 8.2 mg/dL (8.5-10.1) Laboratory Tests Test 04/25/19 03:30 Prothrombin Time 13.8 SEC (11.7-14.0) Prothromb Time International Ratio 1.1 (0.8-1.1) Brief Hospital Course Ms. Tubbs is a 68 old admit s/p [facility] fall on April 21, right hip fracture. She was s/p CVA on last and spent rehab on , and was almost ba ck to normal s/p surg, did well, looked clear [facility] Vitamin D levels are high - stop please, Continue warfarin post hip surgery x 30 days GOal INR 1.8-3 Discharge Information Condition at Discharge: Improved Follow Up: Weeks Disposition/Orders: D/C to Another Facility ([facility]) Scheduled Amlodipine Besylate (Amlodipine Besylate) 10 Mg Tablet, 10 MG PO DAILY for HTN, (Reported) Entered as Reported by: ELLIOT LAMB on 04/22/19619 Last Action: Continued on 04/22/19855 by DESTINEE DOWNEY Aspirin (Aspirin) 81 Mg Tab.chew, 1 TAB PO DAILY for clot prevention, #30 Ref 3 (Reported) Entered as Reported by: ELLIOT LAMB on 04/22/19619 Last Action: HELD on 04/22/19855 by DESTINEE DOWNEY Atorvastatin Calcium (Atorvastatin Calcium) 40 Mg Tablet, 1 TAB PO QHS for high cholestrol, #90 Ref 3 (Reported) Entered as Reported by: ELLIOT LAMB on 04/22/19619 Last Action: Continued on 04/22/19855 by DESTINEE DOWNEY Duloxetine Hcl (Cymbalta) 60 Mg Capsule.dr, 60 MG PO DAILY for anxiety, (Reported) Entered as Reported by: RENEE MCGRATH on 09/10/181522 Last Action: Converted on 04/22/19855 by DESTINEE DOWNEY Fluticasone/Vilanterol (Breo Ellipta 100-25 Mcg Inh) 1 Each Aer.pow.ba, 1 PUFF IH DAILY for COPD, (Reported) Entered as Reported by: ELLIOT LAMB on 04/22/19619 Last Action: Converted on 04/22/19855 by DESTINEE DOWNEY Gabapentin (Gabapentin ) 300 Mg Capsule, 300 MG PO [id number] for nerve pain, (Reported) Entered as Reported by: RASHID SUNSHINE on 05/14/172013 Last Action: Continued on 04/22/19855 by DESTINEE DOWNEY Levothyroxine Sodium (Levothyroxine Sodium) 50 Mcg Tablet, 50 MCG PO DAILYAC for THYROID SUPPLEMENT, #30 Ref 0 (Reported) Entered as Reported by: RENEE MCGRATH on 09/10/181522 Last Action: Converted on 04/22/19855 by DESTINEE DOWNEY Lisinopril (Lisinopril) 20 Mg Tablet, 1 TAB PO DAILY, #30 Ref 5 (Reported) Entered as Reported by: RASHID SUNSHINE on 05/14/172013 Last Action: Continued on 04/22/19855 by DESTINEE DOWNEY [albuterol CFC free ] , 90 MCG IH PRN Q4HRS for SOA, (Reported) Entered as Reported by: ELLIOT LAMB on 04/22/19619 Last Taken: 2 puffs on Unknown Date & Time Last Action: Converted on 04/22/19855 by DESTINEE DOWNEY Scheduled PRN Acetaminophen (Tylenol) 325 Mg Tablet, 650 MG PO PRN Q8HRS PRN for MILD PAIN 1- 3, #30 Prescribed by: ADITYA JOHN on 04/25/19 1159 Albuterol Sulfate (Proair Hfa) 8.5 Gm Hfa.aer.ad, 2.5 MG NEB PRN Q6HRS PRN for SHORTNESS OF BREATH, #1 Prescribed by: ADITYA JOHN on 04/25/19 115 Hydrocodone Bit/Acetaminophen (Hydrocodone-Apap 5-325 ) 1 Tab Tablet, 1 TAB PO PRN Q4HRS PRN for MODERATE PAIN 4-6, #30 Prescribed by: ADITYA JOHN on 04/25/19 1159 Nicotine (NICODERM CQ 14mg) 1 Each Patch.td24, 1 PATCH TP DAILY PRN for SMOKING CESSATION, #14 Prescribed by: ADITYA JOHN on 04/25/19 115 Warfarin Sodium (Coumadin) 10 Mg Tablet, 1 EACH MC PRN DAILY PRN for SEE COMMENTS, #30 Prescribed by: ADITYA JOHN on 04/25/19 115 Discontinued Medications Acetaminophen (Tylenol) 325 Mg Tablet, 2 TAB PO PRN Q6HRS for pain, #30 (Reported) Entered as Reported by: ELLIOT LAMB on 04/22/19619 Last Action: Continued on 04/22/19 08 by DESTINEE DOWNEY Albuterol Sulfate (Ventolin Hfa Inhaler) 18 Gm Hfa.aer.ad, 2 PUFF INH QID for FOR ASTHMA, Ref 0 (Reported) Entered as Reported by: RENEE MCGRATH on 09/10/18 1523 Last Action: Discontinued on 04/22/19619 by ELLIOT LAMB Budesonide/Formoterol Fumarate (Symbicort 160-4.5 Mcg Inhaler) 10.2 Gm Hfa.aer.ad, 2 PUFF IH BID, #1 Ref 3 (Reported) Entered as Reported by: RASHID SUNSHINE on 05/14/172013 Last Action: Discontinued on 04/22/19619 by ELLIOT LAMB Ergocalciferol (Vitamin D2) (Vitamin D2) 50,000 Unit Capsule, 1 CAP PO WEEKLY, #4 Ref 5 (Reported) Entered as Reported by: RASHID SUNSHINE on 05/14/172013 Last Action: Continued on 04/22/19855 by DESTINEE DOWNEY Pravastatin Sodium (Pravastatin Sodium) 40 Mg Tablet, 40 MG PO HS for lipids, (Reported) Entered as Reported by: RASHID GOVEA on 09/10/182119 Last Action: Discontinued on 04/22/19619 by ELLIOT LAMB Patient Instructions Patient Instructions face to face and exam > 30 min total time ADITYA JOHN MD Apr 25, 2019 16:34
--- NOTE | 2019-04-25 18:06 | NUR ---
Pt was discharged to [facility] at 1728 today in stable condition with all personal belongings. Report called in to [facility], packet given to facility transportation personnel, all pertinent information faxed to [facility]. Pt was escorted by transportation personnel and driven by [facility] to [facility].
--- NOTE | 2019-04-26 16:07 | PATHOLOGY ---
[facility] Accession Number: [id number] . 01 Material submitted: . femur - RIGHT FEMORAL HEAD. Modifiers: right, head . 01 Clinical history: . Right femoral neck fracture . 02 Diagnosis: Right femoral head: - Femoral head with focal disruption and hemorrhage, findings consistent with fracture. - Underlying bone marrow with trilineage hematopoiesis. . (SKM:mml; 04/26/2019) QL/04/26/2019 . 02 Electronically signed: . Clinton Pearson MD, Pathologist NPI- [id number] . 01 Gross description: . Received in formalin labeled "Mami Tubbs, right femoral head," is a femoral head measuring 4.5 x 4.5 x 4.2 cm in greatest dimensions. The articular surface is smooth to granular and pale mullen to dark brown in appearance, displaying no gross evidence of eburnation. The bone margin is jagged and hemorrhagic in appearance. Serial sectioning reveals cancellous, pale yellow-mullen to mullen-brown cut surfaces, with extensive hemorrhage noted at the bone margin. [employer] sections of the bone margin are submitted in cassette A1, following decalcification. . Also received within the specimen container are multiple fragments of granular, pale mullen to hemorrhagic bone measuring 5.3 x 4.5 x 1.2 cm in aggregate dimensions. This material is submitted representatively in cassette A2, following decalcification. ([facility]; 04/25/2019) XDC/XDC . 02 Pathologist provided ICD-10: S72.051A . 02 CPT . 050873, 923982 Specimen Comment: A courtesy copy of this report has been sent to Specimen Comment: [phone], , . Specimen Comment: Report sent to ,DR JOHN / DR DOWNEY Performed at: 01 [facility] [address], [place], [place] [id number] MD Wally Martines MD Phone: [phone] Performed at: 02 [facility] [address] [place], [place] [id number] MD Christopher Barrios MD Phone: [phone]
[2019-04-29] MEDS ORDERED: ERGOCALCIFEROL (VITAMIN D2) 50,000 UNIT CAPSULE. PO SCH (09:00)
== END 2019-04-25 17:28 | DRG 470 ==
LOC: 4 NORTH 03:30
PROVIDERS: ADMIT Internal Medicine; ATTEND Internal Medicine
PROC: 0SRR019 Replacement of Right Hip Joint, Femoral Surface with Metal Synthetic Substitute, Cemented, Open Approach (ICD-10-PCS; principal; 2019-04-22 11:30)
DX: S72.001A Fracture of unspecified part of neck of right femur, initial encounter for closed fracture (principal); I10 Essential (primary) hypertension; E78.5 Hyperlipidemia, unspecified; J44.9 Chronic obstructive pulmonary disease, unspecified; F32.9 Major depressive disorder, single episode, unspecified; F41.9 Anxiety disorder, unspecified; M19.90 Unspecified osteoarthritis, unspecified site; E03.9 Hypothyroidism, unspecified; E66.9 Obesity, unspecified; I95.9 Hypotension, unspecified; F17.210 Nicotine dependence, cigarettes, uncomplicated; W18.39XA Other fall on same level, initial encounter; Y93.89 Activity, other specified; Y92.89 Other specified places as the place of occurrence of the external cause; Y99.8 Other external cause status; Z79.82 Long term (current) use of aspirin; Z82.49 Family history of ischemic heart disease and other diseases of the circulatory system; Z79.01 Long term (current) use of anticoagulants; Z68.31 Body mass index [BMI] 31.0-31.9, adult; I69.398 Other sequelae of cerebral infarction
CPT/HCPCS: 36415; 80048; 80053; 82306; 85007; 85025; 85610; 88305; 88311; 93005; 94640; 94760; A7015; C1713; J0171; J0690; J1100; J1650; J2001; J2270; J2370; J2405; J2704; J2710; J3010; J3490; J7030; J7040; J7120; J7613; J7620; J7626; 97110; 97116; 97535